=== PATIENT | female | born 1950 | race Caucasian/White ===

== ENCOUNTER → 2016-09-03 | Outpatient (CLI) | payer BC, OTHER ==
[~2016-09-03] MED LIST: BUTACAP7 PO; CITA40TA12 PO; CLX20 PO; ESTR0.3T PO; LORA-741 PO; METH4PAK PO; MOME6000 NAE; NSNN50 NAE; POTA-327 PO; POTA10CA28 PO; TRIA37.5 PO; VALA500T60 PO; ZNTT/150 PO
== END | disposition home or self-care (01) ==
LOC: C.LAB1850 10:16
PROVIDERS: ATTEND Internal Medicine
DX: Z00.00 Encounter for general adult medical examination without abnormal findings (principal); Z11.59 Encounter for screening for other viral diseases

== ENCOUNTER → 2016-09-25 | Outpatient (CLI) | payer BC, OTHER ==
--- NOTE | 2016-09-25 11:58 | DIAGNOSTIC IMAGING REPORT ---
RIGHT FOOT 3 VIEWS HISTORY: ACUTE FOOT PAIN Right COMPARISON: None. FINDINGS: Mildly displaced oblique fracture within the midshaft of the proximal phalanx of the right fourth toe. This demonstrates 2 mm of lateral displacement. Mild soft tissue swelling within the fourth toe. No radiopaque foreign bodies. IMPRESSION: Mildly displaced oblique fracture within the proximal phalanx of the right fourth toe. Electronically signed by: José Antonio Fitzgerald M.D. 09/25/2016 11:57 AM Dictated Date/Time: 09/25/2016 11:54 AM
== END | disposition home or self-care (01) ==
LOC: C.RAD1850 11:36
PROVIDERS: ATTEND Internal Medicine
DX: S92.511A Displaced fracture of proximal phalanx of right lesser toe(s), initial encounter for closed fracture (principal); X58.XXXA Exposure to other specified factors, initial encounter

== ENCOUNTER → 2016-09-30 | Outpatient (CLI) | payer BC, OTHER ==
--- NOTE | 2016-09-30 15:20 | DIAGNOSTIC IMAGING REPORT ---
RIGHT FOURTH TOE 3 VIEWS HISTORY: RIGHT 4TH TOE PAIN Right COMPARISON: Right foot 09/25/2016. FINDINGS: No change in alignment of the mild displaced oblique fracture through the shaft of the proximal phalanx of the right fourth toe. No significant healing. No dislocation. Soft tissue swelling at the fourth toe. No radiopaque foreign bodies. IMPRESSION: No change in alignment of the mildly displaced oblique fracture within the proximal phalanx of the right fourth toe. Electronically signed by: José Antonio Fitzgerald M.D. 09/30/2016 3:19 PM Dictated Date/Time: 09/30/2016 3:17 PM
== END | disposition home or self-care (01) ==
LOC: C.RDSM 08:00
PROVIDERS: ATTEND Physician Assistant
DX: S92.511A Displaced fracture of proximal phalanx of right lesser toe(s), initial encounter for closed fracture (principal); X58.XXXA Exposure to other specified factors, initial encounter

== ENCOUNTER → 2016-10-23 | Outpatient (CLI) | payer BC, OTHER ==
--- NOTE | 2016-10-23 14:49 | DIAGNOSTIC IMAGING REPORT ---
RIGHT FOURTH TOE FRACTURE CLINICAL HISTORY: Right fourth toe fracture. COMPARISON: Right foot radiographs September 25, 2016 and right fourth toe radiographs September 30, 2016. FINDINGS: There has been no change in alignment of the oblique mildly displaced fracture of the proximal phalanx of the right fourth toe. There is no significant callus formation. IMPRESSION: No change in alignment of the mildly displaced oblique fracture of the proximal phalanx of the right fourth toe. Electronically signed by: Liang Olmos M.D. 10/23/2016 2:47 PM Dictated Date/Time: 10/23/2016 2:42 PM
== END | disposition home or self-care (01) ==
LOC: C.RDSM 13:52
PROVIDERS: ATTEND Physician Assistant
DX: S92.511D Displaced fracture of proximal phalanx of right lesser toe(s), subsequent encounter for fracture with routine healing (principal); X58.XXXD Exposure to other specified factors, subsequent encounter

== ENCOUNTER 2017-01-10 11:34 | Emergency (ER) | payer BC, OTHER ==
[~2017-01-10] VITALS: Ht 180.3 cm; Wt 78.2 kg
[~2017-01-10 11:34] MED LIST changes: -CITA40TA12 PO; -METH4PAK PO; -MOME6000 NAE; -POTA10CA28 PO
[2017-01-10 11:37] VITALS: TEMP 36.9; Ht 180.3 cm; Wt 78.2 kg
[2017-01-10 12:15] LABS: PARTIAL THROMBOPLASTIN RATIO 0.9; PROTHROMBIN TIME (PATIENT) 10.3 SECONDS (9.0-12.0)
[2017-01-10] MEDS ORDERED: MOME6000 NAE (12:15)
[2017-01-10] MEDS ORDERED: CITA40TA12 PO (12:15)
[2017-01-10] MEDS ORDERED: POTA10CA28 PO (12:15)
[2017-01-10 12:22] LABS: ALT/SGPT 22 U/L (12-78); AST/SGOT 9 U/L (15-37); BLOOD UREA NITROGEN 18 mg/dl (7-18); BUN/CREATININE RATIO 19.8 (10-20); CALCIUM 9.6 mg/dl (8.5-10.1); CARBON DIOXIDE 27 mmol/L (21-32); CHLORIDE 103 mmol/L (98-107); CREATININE 0.92 mg/dl (0.60-1.20); GLUCOSE 110 mg/dl (70-99); POTASSIUM 3.8 mmol/L (3.5-5.1); SODIUM 137 mmol/L (136-145)
[2017-01-10 12:26] LABS: ALB/GLOB RATIO 0.9 (0.9-2); ALKALINE PHOSPHATASE 100 U/L (45-117)
--- NOTE | 2017-01-10 12:39 | DIAGNOSTIC IMAGING REPORT ---
CHEST ONE VIEW PORTABLE HISTORY: Atypical Chest pain COMPARISON: Chest 12/24/2013. FINDINGS: The lungs are clear. Cardiac silhouette is normal in size. No pleural effusions. No pneumothorax. IMPRESSION: No acute process. Electronically signed by: José Antonio Fitzgerald M.D. 01/10/2017 12:38 PM Dictated Date/Time: 01/10/2017 12:31 PM
[2017-01-10 12:43] VITALS: O2SAT 95
[2017-01-10] MEDS ORDERED: ASPIRIN 81 MG CHEW PO STA (12:46)
[2017-01-10 12:53] LABS: HEMATOCRIT 41.8 % (37-47); MEAN CELL VOLUME 96.5 fL (80-100); MEAN CORPUSCULAR HEMOGLOBIN 32.3 pg (25-34); MEAN CORPUSCULAR HGB CONC 33.5 g/dl (32-36); MEAN PLATELET VOLUME 10.3 fL (7.4-10.4); PLATELET COUNT 250 K/uL (130-400); RED BLOOD COUNT 4.33 M/uL (4.2-5.4); WHITE BLOOD COUNT 6.69 K/uL (4.8-10.8)
--- NOTE | 2017-01-10 13:39 | EMERGENCY ROOM VISIT NOTE ---
History Report prepared by Jacque: Laurence Givens Under the Supervision of: Dr. Janett Raymond M.D. First contact with patient: 12:18 Chief Complaint: CHEST PAIN Stated Complaint: CHEST, JAW PAIN Nursing Triage Summary: pt c/o "crushing" chest pain that radiates to left shoulder and neck around 1100. pt also c/o SOB due to pain. patient did not take anything for pain. History of Present Illness The patient is a 66 year old female who presents to the Emergency Room with complaints of right sided chest pain occurring about 2 hours ago. The patient was moving around some papers when she had an onset of her pain. The pain was severe at its initial onset. She then started having left shoulder pain radiating up to the neck. Her symptoms lasted for about 5 minutes. She currently describes the chest pain as a pulled muscle. She denies any worsening pain with deep breathing. The patient did not take an aspirin today. She denies fevers, chills, or any other complaints. She denies any recent travels. She was pushing around furniture yesterday but denies lifting any furniture. She recently had a tube placed in her right ear. The patient is on Premarin. She denies any history of blood clots. She had a stress test about 2 months ago with normal results. She has a family history of CABG, stent placement, and stroke. Source of History: patient Onset: about 2 hours ago Position: chest (right) Symptom Intensity: severe Quality: other (pulled muscle) Associated Symptoms: No fevers, No chills Review of Systems See HPI for pertinent positives & negatives. A total of 10 systems reviewed and were otherwise negative. Past Medical & Surgical Medical Problems: (1) Cervical radiculopathy at C5 (2) Cervical radiculopathy at C5 (3) Chest pain (4) Diabetes mellitus (5) Fall at home (6) Fall in home (7) Laceration (8) Leg pain, left (9) MENIERE'S DISEASE, UNSPECIFIED (10) Migraines (11) Radicular pain in left arm (12) Radicular pain in left arm (13) Shortness of breath (14) SOB (shortness of breath) Surgical Problems: (1) History of - hysterectomy (2) Status post hip surgery Family History Heart disease Hypertension Social History Smoking Status: Never Smoker Alcohol Use: occasionally Drug Use: none Marital Status: single Housing Status: lives with family Occupation Status: employed Current/Historical Medications Scheduled Citalopram Hydrobromide (Celexa), 40 MG PO HS Estrogens, Conjugated (Premarin), 0.3 MG PO Q2D Potassium Chloride (Micro-K Ext Rel), 10 MEQ PO DAILY Triamterene/Hctz (Dyazide 37.5MG/25MG), 1 TAB PO DAILY Scheduled PRN Hwmmutuvad-Xxdgelv-Bzdyxhgd (Butal/Asa/Caff), 1 CAP PO Q4H PRN for Pain Lorazepam (Ativan), 0.5 MG PO BID PRN for Anxiety Mometasone Furoate (Nasal) (Mometasone Furoate), 1-2 SPRAYS WILMAN DAILY PRN for ALLERGIES Ranitidine (Zantac), 150 MG PO Q12 PRN for Indigestion Valacyclovir (Valtrex), 500 MG PO BID PRN for OUTBREAK Allergies Coded Allergies: Ketoprofen (Verified Allergy, Severe, HIVES, 10/01/16) Aspirin (Verified Allergy, Unknown, GI SYMPTOMS, 10/01/16) Oxycodone (Verified Allergy, Unknown, GI SYMPTOMS, AGITATION, 10/01/16) Promethazine (Unverified Allergy, Unknown, RASH, 10/01/16) iv form only per patient. Cellulitis with iv Phenergan. can tolerate oral dosing Cyclobenzaprine (Unverified Adverse Reaction, Unknown, "WIPES ME OUT", ) SEVERE SIDE EFFECTS. Physical Exam Vital Signs Date Time Temp Pulse Resp B/P (MAP) Pulse Ox O2 Delivery O2 Flow Rate FiO2 01/10/17 16:37 83 18 105/63 96 Room Air 01/10/17 14:47 70 14 101/63 97 Room Air 01/10/17 12:57 84 14 124/90 97 01/10/17 12:44 75 16 130/72 96 Room Air 01/10/17 12:43 75 16 130/72 96 Room Air 01/10/17 12:43 95 Room Air 01/10/17 12:17 77 01/10/17 11:37 36.9 100 22 162/81 96 Room Air Physical Exam Vital signs reviewed. General: Well-appearing, in no significant distress. HEENT: No scleral icterus, PERRLA, neck supple. Atraumatic. Cardiovascular: Regular rate and rhythm, no extra sounds. Pulmonary: Clear to auscultation bilaterally, normal work of breathing. Abdomen: Soft, nontender, nondistended, positive bowel sounds. Musculoskeletal: Atraumatic, no peripheral edema. Neurologic: Patient awake alert and oriented x 3, full strength in all 4 extremities. Cranial nerves 2 through 12 grossly intact. Skin: Warm, dry, no rash Medical Decision & Procedures ER Provider Diagnostic Interpretation: X-ray results as stated below per interpretation by me and the radiologist: CHEST ONE VIEW PORTABLE HISTORY: Atypical Chest pain COMPARISON: Chest 12/24/2013. FINDINGS: The lungs are clear. Cardiac silhouette is normal in size. No pleural effusions. No pneumothorax. IMPRESSION: No acute process. Electronically signed by: José Antonio Fitzgerald M.D. 01/10/2017 12:38 PM Dictated Date/Time: 01/10/2017 12:31 PM Laboratory Results 01/10/17 11:45 01/10/17 11:45 Test 01/10/17 11:45 01/10/17 16:05 Red Blood Count 4.33 M/uL (4.2-5.4) Mean Corpuscular Volume 96.5 fL (80-100) Mean Corpuscular Hemoglobin 32.3 pg (25-34) Mean Corpuscular Hemoglobin Concent 33.5 g/dl (32-36) RDW Standard Deviation 44.8 fL (36.4-46.3) RDW Coefficient of Variation 12.7 % (11.5-14.5) Mean Platelet Volume 10.3 fL (7.4-10.4) Nucleated RBC Absolute Count (auto) 0.00 K/uL (0-0) Nucleated Red Blood Cells % 0.0 % Prothrombin Time 10.3 SECONDS (9.0-12.0) Prothromb Time International Ratio 1.0 (0.9-1.1) Activated Partial Thromboplast Time 24.4 SECONDS (21.0-31.0) Partial Thromboplastin Ratio 0.9 D-Dimer 390 ug/L FEU (0-500) Anion Gap 7.0 mmol/L (3-11) Est Creatinine Clear Calc Drug Dose 69.0 ml/min Estimated GFR () 76.3 Estimated GFR (Non- 65.8 BUN/Creatinine Ratio 19.8 (10-20) Calcium Level 9.6 mg/dl (8.5-10.1) Total Bilirubin 0.3 mg/dl (0.2-1) Aspartate Amino Transf (AST/SGOT) 9 U/L (15-37) Alanine Aminotransferase (ALT/SGPT) 22 U/L (12-78) Alkaline Phosphatase 100 U/L (45-117) Total Creatine Kinase 68 U/L (26-192) Creatine Kinase MB < 0.5 ng/ml (0.5-3.6) Creatine Kinase MB Ratio (0-3.0) Total Protein 7.7 gm/dl (6.4-8.2) Albumin 3.7 gm/dl (3.4-5.0) Globulin 4.0 gm/dl (2.5-4.0) Albumin/Globulin Ratio 0.9 (0.9-2) Bedside Troponin I < 0.030 ng/ml (0-0.045) Laboratory results per my review. Medications Administered Medications (Trade) Dose Ordered Sig/Ro Route Start Time Stop Time Status Last Admin Dose Admin Aspirin (Aspirin Chew) 324 mg NOW STAT PO 01/10/17 12:46 01/10/17 12:47 DC 01/10/17 12:58 324 MG ECG Indication: chest pain Rate (beats per minute): 77 Rhythm: normal sinus Findings: no acute ischemic change, no ectopy ED Course 1218: Past medical records reviewed. The patient was evaluated in room C01B. A complete history and physical examination was performed. 1246: Aspirin 324 mg PO 1639: Upon reevaluation, the patient appeared to have improvement of her symptoms. I discussed findings with her. She verbalized agreement of the treatment plan. She was discharged home. Medical Decision Medication Reconciliation: I attest that I have personally reviewed the patient' s current medication list. Blood Pressure Screening: Patient was found to have normal blood pressure on screening and does not require follow-up. Differential diagnosis: Acute coronary syndrome, pulmonary embolus, aortic dissection, musculoskeletal pain, pneumonia, pleural effusion, pneumothorax This patient was evaluated and appeared to be in no significant distress. IV access was obtained and laboratory work was drawn. 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 EKG reveals no acute ischemic changes. Laboratory work reveals negative cardiac enzymes. Patient did receive aspirin in the emergency department. Chest x-ray is clear. The patient stated that she has stress test that was negative 2 months ago. A second troponin was done at approximate 6 hours after the onset of pain and is negative. The patient was anxious to leave the department and was asked to follow-up with her primary care physician this week for reevaluation and consideration of further testing. Patient was comfortable with the plan and agrees. Impression Primary Impression: Chest pain radiating to jaw Scribe Attestation The scribe's documentation has been prepared under my direction and personally reviewed by me in its entirety. I confirm that the note above accurately reflects all work, treatment, procedures, and medical decision making performed by me. Departure Information Dispostion Home / Self-Care Referrals Kp Kim M.D. (PCP) Forms HOME CARE DOCUMENTATION FORM, IMPORTANT VISIT INFORMATION Patient Instructions My [facility] Additional Instructions Diagnosis: Chest pain radiating to the jaw. Continue your medications as prescribed. Contact Dr. Kim's office today or early tomorrow for an appointment for reevaluation. Return to the emergency department for worsening of symptoms or any medical concerns.
[2017-01-10 16:37] VITALS: BP 105/63; PULSE 83; O2SAT 96
== END 2017-01-10 16:47 | disposition home or self-care (01) ==
LOC: C.EDB 11:36 → C.EDC 16:47
DX: R07.9 Chest pain, unspecified (principal); R68.84 Jaw pain; M25.512 Pain in left shoulder; M54.2 Cervicalgia; E11.9 Type 2 diabetes mellitus without complications; Z79.899 Other long term (current) drug therapy; Z82.3 Family history of stroke; Z82.49 Family history of ischemic heart disease and other diseases of the circulatory system

== ENCOUNTER → 2017-01-22 | Outpatient (CLI) | payer BC, OTHER ==
[~2017-01-22] MED LIST changes: +CITA40TA12 PO; -CLX20 PO; +METH4PAK PO; +MOME6000 NAE; -NSNN50 NAE; -POTA-327 PO; +POTA10CA28 PO
[2017-01-22 10:19] LABS: ESTIMATED AVERAGE GLUCOSE 120 mg/dl; HA1C FLAG Normal (Normal)
[2017-01-22 12:38] LABS: CHOLESTEROL/HDL RATIO 3.3
== END | disposition home or self-care (01) ==
LOC: C.LAB1850 08:56
PROVIDERS: ATTEND Internal Medicine
DX: E78.5 Hyperlipidemia, unspecified (principal); R73.03 Prediabetes

== ENCOUNTER 2017-02-08 10:24 | Emergency (ER) | payer BC, OTHER ==
[~2017-02-08] VITALS: Ht 180.3 cm; Wt 79.6 kg
[~2017-02-08 10:24] MED LIST changes: -METH4PAK PO
[2017-02-08 10:29] VITALS: TEMP 36.6; Ht 180.3 cm; Wt 79.6 kg
--- NOTE | 2017-02-08 11:23 | EMERGENCY ROOM VISIT NOTE ---
History Report prepared by Jacque: Liseth Spann Under the Supervision of: Dr. Cora Yuan D.O. First contact with patient: 11:00 Chief Complaint: ALLERGIC REACTION Stated Complaint: ALLERGIC REACTION Nursing Triage Summary: Pt reports itching on her face yesterday, right side and then she got a red rash spreading to left side of face and left neck. Took benadryl twice yesterday but did not take it this am. Pt requests no IV until after seen by Provider. History of Present Illness The patient is a 66 year old female who presents to the Emergency Room with complaints of a worsening allergic reaction that started yesterday. She states she noticed a red rash spreading over her face yesterday along the left side of her face and left neck. She rates her discomfort as a 6.5/10. She took Benadryl yesterday and states it provided minimal relief. The patient reports she mowed her lawn recently but denies any recent excessive time spent outdoors or in the [place]. She notes she does have indoor/outdoor cats at home, and could have gotten exposed to something through them. Source of History: patient Onset: yesterday Position: head (right side of face) Symptom Intensity: 6.5/10 Timing: worsening Modifying Factors (Relieving): other (Benadryl) Review of Systems See HPI for pertinent positives & negatives. A total of 10 systems reviewed and were otherwise negative. Past Medical & Surgical Medical Problems: (1) Cervical radiculopathy at C5 (2) Cervical radiculopathy at C5 (3) Chest pain (4) Diabetes mellitus (5) Fall at home (6) Fall in home (7) Laceration (8) Leg pain, left (9) MENIERE'S DISEASE, UNSPECIFIED (10) Migraines (11) Radicular pain in left arm (12) Radicular pain in left arm (13) Shortness of breath (14) SOB (shortness of breath) Surgical Problems: (1) History of - hysterectomy (2) Status post hip surgery Family History Heart disease Hypertension Social History Smoking Status: Former Smoker Alcohol Use: occasionally Drug Use: none Marital Status: single Housing Status: lives with family Occupation Status: employed Current/Historical Medications Scheduled Citalopram Hydrobromide (Celexa), 40 MG PO HS Estrogens, Conjugated (Premarin), 0.3 MG PO Q2D Methylprednisolone (Medrol Dosepak), 1 PKT PO UD Potassium Chloride (Micro-K Ext Rel), 10 MEQ PO DAILY Triamterene/Hctz (Dyazide 37.5MG/25MG), 1 TAB PO DAILY Scheduled PRN Iahsaoflln-Amskrux-Hakhluyj (Butal/Asa/Caff), 1 CAP PO Q4H PRN for Pain Lorazepam (Ativan), 0.5 MG PO BID PRN for Anxiety Mometasone Furoate (Nasal) (Mometasone Furoate), 1-2 SPRAYS WILMAN DAILY PRN for ALLERGIES Ranitidine (Zantac), 150 MG PO Q12 PRN for Indigestion Valacyclovir (Valtrex), 500 MG PO BID PRN for OUTBREAK Allergies Coded Allergies: Ketoprofen (Verified Allergy, Severe, HIVES, 02/08/17) Aspirin (Verified Allergy, Unknown, GI SYMPTOMS, 02/08/17) Oxycodone (Verified Allergy, Unknown, GI SYMPTOMS, AGITATION, 02/08/17) Promethazine (Unverified Allergy, Unknown, RASH, 02/08/17) iv form only per patient. Cellulitis with iv Phenergan. can tolerate oral dosing Cyclobenzaprine (Unverified Adverse Reaction, Unknown, "WIPES ME OUT", ) SEVERE SIDE EFFECTS. Physical Exam Vital Signs Date Time Temp Pulse Resp B/P (MAP) Pulse Ox O2 Delivery O2 Flow Rate FiO2 02/08/17 11:35 72 18 91/60 99 02/08/17 10:32 96 Room Air 02/08/17 10:29 36.6 77 19 124/78 96 Room Air Physical Exam HEENT: Head - normocephalic and atraumatic Linear line along left side of the face consistent with poison marry. Pupils are equal, round, and reactive to light. Extraocular eye muscles are intact. Surrounding the right eye and right side of face there are vesicular lesions consistent with poison marry/oak. Right eye has lid edema, no scleral involvement. Nose - moist nasal mucosa without discharge. Mouth - moist buccal mucosa. Oropharynx is nonerythematous and there is no tonsillar exudate or edema noted. Neck: Supple; no JVD, nuchal rigidity, cervical lymphadenopathy. The patient has one area of vesicular lesions on the anterior aspect of the left side of her neck. Heart: Regular rate and rhythm. There is a normal S1 and S2 with no murmurs, clicks, or gallops appreciated. Lungs: Clear to auscultation bilaterally with no wheezes, rales, or rhonchi. Abdomen: Soft, completely nontender, nondistended, with good bowel sounds. There are no palpable pulsatile masses or hepatosplenomegaly. There is no guarding, rigidity, or rebound noted. Extremities: No evidence of cyanosis, clubbing, or edema. There are easily palpable peripheral pulses. Skin: warm and dry with good turgor and no rashes. Medical Decision & Procedures Medications Administered Medications (Trade) Dose Ordered Sig/Ro Route Start Time Stop Time Status Last Admin Dose Admin Prednisone (PredniSONE TAB) 60 mg NOW STAT PO 02/08/17 11:24 02/08/17 11:25 DC 02/08/17 11:30 60 MG Procedure Prednisone PO. ED Course 1112: Past medical records reviewed. The patient was evaluated in room B7. A complete history and physical exam was performed. 1124: Prednisone 60 mg PO. 1145: I reevaluated the patient. She is feeling much better. I discussed her discharge instructions and she verbalized complete understanding and agreement. Medical Decision I attest that I have personally reviewed the patient's current medication list. Blood Pressure Screening: Patient was found to have a slightly low blood pressure due to circumstances. I do not believe that the patient requires hypotension monitoring. The patient is a 66 year old female who presents to the ED with an allergic reaction. The differential diagnoses considered include: poison marry, poison oak , poison sumac, shingles and cellulitis. Patient has a rash about the right side of her face that looks consistent with poison sumac or poison oak. She also has an area of linear vesicular lesions over the left side of her face which also looks consistent with poison but is most likely poison marry. The patient does believe that she may have come into contact with this substance as a result of her cats climbing around her face. The patient was encouraged to use Zanfel for itch. She will start a Medrol Dosepak Impression Primary Impression: Dermatitis due to plants, including poison marry, sumac, and oak Scribe Attestation The scribe's documentation has been prepared under my direction and personally reviewed by me in its entirety. I confirm that the note above accurately reflects all work, treatment, procedures, and medical decision making performed by me. Departure Information Dispostion Home / Self-Care Prescriptions Methylprednisolone (MEDROL DOSEPAK) 4 Mg Kenny 1 PKT PO UD for 6 Days, #1 PKT Prov: Cora Yuan D.O. 02/08/17 Referrals Pro,Kp Zamudio M.D. (PCP) Patient Instructions My [facility], Po[facility] React Additional Instructions Rest with your head elevated. Use Zanfel as directed. Take steroid taper You may also use benadryl
[2017-02-08 11:35] VITALS: BP 91/60; PULSE 72; O2SAT 99
[2017-02-08] MEDS ORDERED: METH4PAK PO (11:40)
== END 2017-02-08 11:47 | disposition home or self-care (01) ==
LOC: C.EDB 10:26
DX: L23.7 Allergic contact dermatitis due to plants, except food (principal); E11.9 Type 2 diabetes mellitus without complications; Z90.710 Acquired absence of both cervix and uterus; Z82.49 Family history of ischemic heart disease and other diseases of the circulatory system; Z87.891 Personal history of nicotine dependence; Z79.899 Other long term (current) drug therapy

== ENCOUNTER → 2017-06-12 | Outpatient (CLI) | payer BC, OTHER ==
--- NOTE | 2017-06-12 15:53 | DIAGNOSTIC IMAGING REPORT ---
R ELBOW 2 VIEWS HISTORY: 67 years-old Female INFLAMMATION OF R ELBOW acute right elbow pain without reported trauma COMPARISON: None available TECHNIQUE: 3 views of the right elbow FINDINGS: There is no acute fracture or dislocation. There is mild degenerative spurring about the elbow, notably at the lateral epicondyle at the expected location of the common extensor insertion. Mild dorsal soft tissue swelling. No joint effusion or opaque foreign body. IMPRESSION: 1. Mild dorsal soft tissue swelling without acute fracture or dislocation. 2. Mild degenerative spurring about the elbow. The above report was generated using voice recognition software. It may contain grammatical, syntax or spelling errors. Electronically signed by: Ke Anderson M.D. 06/12/2017 3:51 PM Dictated Date/Time: 06/12/2017 3:50 PM
== END | disposition home or self-care (01) ==
LOC: C.RAD1850 15:24
PROVIDERS: ATTEND Internal Medicine
DX: M19.021 Primary osteoarthritis, right elbow (principal)

== ENCOUNTER → 2017-06-13 | Outpatient (CLI) | payer BC, OTHER ==
[2017-06-13 18:17] LABS: MEAN CELL VOLUME 98.7 fL (80-100); MEAN CORPUSCULAR HEMOGLOBIN 32.5 pg (25-34); MEAN PLATELET VOLUME 10.9 fL (7.4-10.4); PLATELET COUNT 202 K/uL (130-400); RED BLOOD COUNT 3.75 M/uL (4.2-5.4); WHITE BLOOD COUNT 6.57 K/uL (4.8-10.8)
[2017-06-13 18:37] LABS: BLOOD UREA NITROGEN 24 mg/dl (7-18); BUN/CREATININE RATIO 27.8 (10-20); CALCIUM 9.1 mg/dl (8.5-10.1); CARBON DIOXIDE 29 mmol/L (21-32); CHLORIDE 102 mmol/L (98-107); CREATININE 0.86 mg/dl (0.60-1.20); GLUCOSE 90 mg/dl (70-99); POTASSIUM 3.7 mmol/L (3.5-5.1); SODIUM 137 mmol/L (136-145)
[2017-06-14 07:13] LABS: ESTIMATED AVERAGE GLUCOSE 117 mg/dl; HA1C FLAG Normal (Normal)
== END | disposition home or self-care (01) ==
LOC: C.LAB 17:09
PROVIDERS: ATTEND Internal Medicine
DX: G47.00 Insomnia, unspecified (principal); R73.03 Prediabetes; E53.8 Deficiency of other specified B group vitamins; E55.9 Vitamin D deficiency, unspecified; R53.83 Other fatigue; Z78.0 Asymptomatic menopausal state

== ENCOUNTER → 2017-06-24 | Outpatient (CLI) | payer BC ==
[2017-06-24 17:20] LABS: BASO % 0.2 %; BASO ABS # 0.02 K/uL (0-0.2); COMPLETE YES; EOS % 1.9 %; HEMATOCRIT 37.1 % (37-47); IG% 0.4 %; LYMPH % 27.4 %; MEAN CELL VOLUME 99.7 fL (80-100); MEAN CORPUSCULAR HEMOGLOBIN 33.9 pg (25-34); MEAN PLATELET VOLUME 10.8 fL (7.4-10.4); MONO % 9.7 %; NEUT % 60.4 %; PLATELET COUNT 209 K/uL (130-400); RED BLOOD COUNT 3.72 M/uL (4.2-5.4); WHITE BLOOD COUNT 8.04 K/uL (4.8-10.8)
[2017-06-24 17:50] LABS: ALT/SGPT 33 U/L (12-78); BLOOD UREA NITROGEN 25 mg/dl (7-18); BUN/CREATININE RATIO 25.3 (10-20); CALCIUM 8.9 mg/dl (8.5-10.1); CARBON DIOXIDE 32 mmol/L (21-32); CHLORIDE 98 mmol/L (98-107); CREATININE 0.99 mg/dl (0.60-1.20); GLUCOSE 106 mg/dl (70-99); POTASSIUM 3.7 mmol/L (3.5-5.1); SODIUM 136 mmol/L (136-145)
[2017-06-24 17:53] LABS: ALKALINE PHOSPHATASE 115 U/L (45-117); AST/SGOT 19 U/L (15-37)
== END | disposition home or self-care (01) ==
LOC: C.LAB1850 16:13
PROVIDERS: ATTEND Internal Medicine
DX: R51 Headache (principal); R53.83 Other fatigue; R00.2 Palpitations; R11.0 Nausea

== ENCOUNTER → 2017-07-16 | Outpatient (CLI) | payer BC, OTHER ==
[~2017-07-16] MED LIST changes: +RANI150T85 PO; -ZNTT/150 PO
--- NOTE | 2017-07-16 14:59 | MAMMOGRAPHY REPORT ---
BILATERAL DIGITAL SCREENING MAMMOGRAM TOMOSYNTHESIS WITH CAD: 07/16/2017 CLINICAL HISTORY: Routine screening. TECHNIQUE: Breast tomosynthesis in addition to standard 2D mammography was performed. Current study was also evaluated with a Computer Aided Detection (CAD) system. COMPARISON: Comparison is made to exams dated: 11/22/2013 mammogram, 11/17/2013 mammogram, 04/16/2010 ma mmogram - [facility], and 02/18/2008. BREAST COMPOSITION: There are scattered areas of fibroglandular density in both breasts. FINDINGS: No suspicious masses, calcifications, or areas of architectural distortion are noted in ei ther breast. There has been no significant interval change compared to prior exams. Scattered bilater al benign-appearing calcifications are not significantly changed. Bilateral asymmetries are not sign ificantly changed. IMPRESSION: ACR BI-RADS CATEGORY 2: BENIGN There is no mammographic evidence of malignancy. A 1 year screening mammogram is recommended. The pa tient will receive written notification of the results. Approximately 10% of breast cancers are not detected with mammography. A negative mammographic report should not delay biopsy if a clinically suggestive mass is present. Gifty Jansen M.D. ah/:07/16/2017 10:21:07 Fx Artist: Robbin BERGMAN(Aris)(Jhony), [facility] letter sent: Normal 1/2 BI-RADS Code: ACR BI-RADS Category 2: Benign
== END | disposition home or self-care (01) ==
LOC: C.MAMM 09:50
PROVIDERS: ATTEND Internal Medicine
DX: Z12.31 Encounter for screening mammogram for malignant neoplasm of breast (principal)

== ENCOUNTER 2024-10-13 22:18 | Observation (INO) ==
[2024-10-13 22:23] VITALS: TEMP 97.9
[2024-10-13 23:48] LABS: Basophils # (auto) 0.02 K/uL (0.00-0.20); Basophils % (auto) 0.3 %; Eosinophils # (auto) 0.17 K/uL (0.00-0.50); Eosinophils % (auto) 2.3 %; Hematocrit (blood only) 37.9 % (37.0-47.0); Immature Granulocytes # (auto) 0.02 K/uL (0.01-0.20); Immature Granulocytes % (auto) 0.3 %; Lymphocytes # (auto) 2.35 K/uL (1.20-3.40); Lymphocytes % (auto) 31.9 %; Mean Corpuscular Hemoglobin 34.5 pg (25.0-34.0); Mean Corpuscular Hgb Conc 34.3 g/dL (32.0-36.0); Mean Corpuscular Volume 100.5 fL (80.0-100.0); Mean Platelet Volume 10.5 fL (9.4-12.4); Monocytes # (auto) 0.66 K/uL (0.11-0.59); Neutrophils # (auto) 4.14 K/uL (1.40-6.50); Neutrophils % (auto) 56.2 %; Platelet Count 176 K/uL (130-400); RDW Coefficient of Variation 13.1 % (11.5-14.5); RDW Standard Deviation 47.6 fL (36.4-46.3); Red Blood Count 3.77 M/uL (4.20-5.40); White Blood Count 7.36 K/ul (4.8-10.8)
[2024-10-13 23:55] LABS: Albumin Globulin Ratio 1.2 (0.9-2); Albumin Level 4.2 gm/dl (3.4-5.0); BUN Creatinine Ratio 25.3 (10-20); Bilirubin,Total 0.4 mg/dl (0.2-1.0); Calcium 9.5 mg/dl (8.6-10.3); Creatinine Clr Calc Pharmacy 63.2 ml/min; Globulin 3.4 gm/dl (2.5-4.0); Potassium 3.7 mmol/L (3.5-5.1); Total Protein 7.6 gm/dl (6.0-8.3)
[2024-10-14 00:01] LABS: Troponin I High Sensitivity 4.7 pg/ml (0-14)
--- NOTE | 2024-10-14 00:18 | XRay Report ---
Exam(s): XR CXR 1 VIEW EXAM: XR Chest, 1 View CLINICAL HISTORY: Reason for exam: Chest pain, nonspecific. TECHNIQUE: Frontal view of the chest. COMPARISON: May 24, 2024. FINDINGS: Lungs: Unremarkable. No acute infiltration, atelectasis or mass. Pleural space: Unremarkable. No pneumothorax or pleural fluid. Heart: Unremarkable. No cardiomegaly. Mediastinum: Unremarkable. Normal mediastinal contour. Bones/joints: Mild curvature of the spine. No acute bone abnormality. IMPRESSION: No acute findings in the chest. Electronically signed by: Sesar Montana MD 10/14/24 00:17 AM
--- NOTE | 2024-10-14 00:59 | Emergency Department Note ---
Impression & Plan Chest pain ED Provider Note NAME: KWAME VALDES AGE: 74 SEX: F : 1950 ARRIVES VIA: Walk-In INFORMANT: Patient, ED PROVIDER(S): Emiliano Anderson MD CHIEF COMPLAINT: Chest pain HPI: This is a 74-year-old female presenting for chest pain. Patient states that she began having right sided neck pain that was rating to her jaw. This time into her shoulder. She attempted to walk around admitted to go away. She notes that the pain did resolve slightly and then returned. The pain that went from her right shoulder crossed her chest. She notes some repeat episodes of chest and jaw pain. She reports no shortness of breath with this. No nausea or vomiting. No pleurisy. ROS: See above HPI for pertinent positives & negatives. A total of 10 systems reviewed and were otherwise negative. PAST MEDICAL HISTORY: See Below PAST SURGICAL HISTORY: See Below FAMILY HISTORY: See Below SOCIAL HISTORY: See Below HOME MEDICATIONS: See Below ALLERGIES: See Below VITALS: See Below PHYSICAL EXAMINATION: General: resting comfortably in no acute distress Head: Normocephalic and atraumatic Eyes: Normal inspection, extraocular muscles intact Ear, nose, throat: Normal external exam Neck: Normal range of motion Respiratory: lungs clear to auscultation bilaterally Cardiovascular: Regular rate/rhythm, no murmur GI: soft, nontender, no guarding or rebound Extremities: nontender, moves all extremities Neuro: The patient awake and alert, appropriately conversive, no focal deficits, symmetric faces Skin: Warm, dry, and intact MEDICAL DECISION MAKING: This is 74-year-old female presenting for chest pain. Will do screening workup to assess for ACS. Low concern for PE clinically. Consider pneumonia, rib injury, dissection -ECG independently interpreted by me with normal sinus rhythm, rate of 71, normal axis, normal NC, normal QRS, normal QTc, no ST segment elevations consistent with STEMI criteria -Chest Xray independently interpreted by me showing no pneumothorax, focal opacity, or pleural effusions. -Patient has numerous episodes of recurrent pain here both in the chest and neck. Will do CT of the chest/neck to assess for dissection -The CTs are currently negative -Troponins returned negative as well. -With patient's persistent pain, will admit for ACS workup and further testing. Differential diagnosis: ACS, PE, dissection, musculoskeletal back pain, GERD, pancreatitis Diagnostics interpreted by me: ECG: See above Cardiac Monitoring: An order was placed for continuous cardiac monitoring. The monitor shows a rate of 80 with sinus rhythm. Past Med/Surg History Problem List Chest pain (Acute) Change in bowel movement Avascular necrosis of bones of both hips Ischial bursitis of left side Osteonecrosis of hip Elevated alkaline phosphatase level Duane's deformity of right heel Retrocalcaneal bursitis (back of heel) S/P myringotomy with insertion of tube ETD (eustachian tube dysfunction) Chronic diarrhea Vitamin D deficiency (Acute) Vitamin B12 deficiency (Acute) Migraine headache (Acute) Insomnia (Acute) IBS (irritable bowel syndrome) (Acute) Anxiety disorder (Acute) Right hip pain Short NC-normal QRS complex syndrome Fatigue Pituitary microadenoma Herpes (Chronic) Lateral epicondylitis of left elbow Left hip pain Hamstring tear Encounter for pre-operative examination Gout Trochanteric bursitis of right hip Dorsalgia of lumbar region Scar neuroma Acute medial meniscus tear of right knee Allergic contact dermatitis Drug reaction Oral allergy syndrome Pancytopenia Wrist pain Carpal tunnel syndrome of right wrist De Quervain's tenosynovitis, right Family history of factor V deficiency Pt heterozygous for Factor V Leiden per 10/01/22 labs Pt aware- no personal hx of PE or DVT- no AC needed per patient; no issues with previous surgeries Hyperlipidemia (Acute) Per PCP records Prediabetes (Acute) Per PCP records Hgb A1C 6.0 09/2022 Geographic tongue History of hip surgery 08/20/21 ([facility]) Left open proximal hamstring repair Medical History Abdominal pain Tongue irritation Mucositis Dysuria Chest pain Gout HTN (hypertension) Environmental allergies Meniere disease Benign tumor of pituitary gland MRI every 3 years IBS (irritable bowel syndrome) GERD (gastroesophageal reflux disease) [place] (hard of hearing) Anxiety Migraines Surgical History History of carpal tunnel surgery of right wrist 12/2022 @ [facility] History of placement of ear tubes RIGHT History of colonoscopy History of hip surgery Rt - repair of labral tear. [facility] History of tympanoplasty Hx of tonsillectomy H/O oophorectomy H/O: hysterectomy H/O cystoscopy treatment for Female Urethral Syndrome Family History Father Arteriosclerotic cardiovascular disease (ASCVD) Mother Brain tumor PONV (postoperative nausea and vomiting) Grandfather (Paternal) Hypertension Brother Hypertension Sister PONV (postoperative nausea and vomiting) Denies family history of Ovarian cancer Prostate cancer Breast cancer Colorectal cancer Social History Smoking Status: Never smoker Tobacco Type: Cigarettes packs per day: 0; Second Hand Exposure: No; Do You Dip or Chew Tobacco: No; Hx Alcohol Use: Yes Alcohol type: beer and wine Hx Substance Use: No Preferred Language: [place] Communication Ability: Effective Visual Impairment: No Limitations Hearing Ability: Normal Booking Prizer Required: No Beliefs That Will Affect Care: None marital status: Single Current Living Situation: Family current occupational status: employed Feels Safe at Home: Yes Seatbelt Use: always Assistive Devices: Denture - Lower and Glasses Allergies Allergies Allergy/AdvReac Type Severity Reaction Status Date / Time ketoprofen Allergy Severe HIVES Verified 10/14/24 00:38 ketorolac Allergy Severe Hives Verified 10/14/24 00:38 promethazine [From Phenergan] Allergy Intermediate cellulitis Verified 10/14/24 00:38 when received IV form azithromycin AdvReac Severe Abdominal Verified 10/14/24 04:56 Pain,diarrhea, chills cyclobenzaprine AdvReac Mild "WIPES ME Verified 10/14/24 00:38 OUT" Home Meds Home Medications Medication Instructions Recorded Confirmed cholecalciferol (vitamin D3) 50 50 mcg PO QAM 08/01/21 10/14/24 mcg (2,000 unit) capsule (Vitamin D3) azelastine 137 mcg (0.1 %) nasal 2 spray intranasal BID PRN Nasal 05/07/23 10/14/24 spray Congestion dicyclomine 10 mg capsule 10 mg PO QID PRN abdominal cramping 06/22/23 10/14/24 lorazepam 1 mg tablet 1 mg PO HS PRN anxiety 10/14/24 10/14/24 pantoprazole 40 mg tablet,delayed 40 mg PO DAILYBB 10/14/24 10/14/24 release Previous Rx's Medication Instructions Recorded famotidine 20 mg tablet 20 mg PO QAM Heartburn #30 tabs 01/08/24 triamterene 37.5 1 cap PO QAM #30 caps 07/27/24 mg-hydrochlorothiazide 25 mg capsule gabapentin 100 mg capsule 300 mg (3 x 100 mg) PO BID #180 08/04/24 caps rosuvastatin 10 mg tablet (Crestor) 10 mg PO DAILY #90 tabs 08/04/24 lorazepam 0.5 mg tablet 0.5 mg PO BID PRN anxiety #30 tabs 08/27/24 valacyclovir 1 gram tablet 1,000 mg PO QAM #30 tabs 09/07/24 tramadol 50 mg tablet 50 mg PO DAILY PRN pain #20 tabs 09/16/24 potassium chloride 10 mEq 10 meq PO QAM #60 tabs 09/17/24 tablet,extended release otvcewjybg-zyqyhfagklcfc-qxvwxlya 1 cap PO Q8H PRN pain #20 caps 10/12/24 50 mg-300 mg-40 mg capsule (Fioricet) allopurinol 100 mg tablet 200 mg (2 x 100 mg) PO DAILY #60 10/13/24 tabs escitalopram oxalate 20 mg tablet 20 mg PO HS #90 tabs 10/13/24 (Lexapro) Results & Data (ED) Vital Signs Vital Signs - 24 hr 10/13/24 22:20 10/13/24 22:33 10/13/24 23:20 Temperature 36.6 C Temperature Source Temporal Artery Scan Pulse Rate 92 H 74 Pulse Rate [Right Finger] Pulse Rate from SpO2 Sensor Respiratory Rate 18 Respiratory Effort / Characteristics Non-Labored Spontaneous Respiratory Depth Normal Blood Pressure 133/77 Blood Pressure [Right Arm] Blood Pressure Mean 95 Blood Pressure Mean [Right Arm] Pulse Oximetry 96 95 Oxygen Delivery Method Room Air Room Air Sepsis Recent Fever Within 48 Hours No Sepsis New/Unexplained Change in Mental Status N/A Sepsis Action Taken by Nursing No Action Required 10/13/24 23:20 10/13/24 23:20 10/14/24 01:30 Temperature 36.6 C Temperature Source Oral Pulse Rate 73 70 Pulse Rate [Right Finger] 73 Pulse Rate from SpO2 Sensor 70 Respiratory Rate 18 18 16 Respiratory Effort / Characteristics Non-Labored Spontaneous Respiratory Depth Normal Blood Pressure 108/44 L Blood Pressure [Right Arm] 121/70 Blood Pressure Mean 61 Blood Pressure Mean [Right Arm] 87 Pulse Oximetry 96 96 97 Oxygen Delivery Method Room Air Room Air Room Air Sepsis Recent Fever Within 48 Hours Sepsis New/Unexplained Change in Mental Status Sepsis Action Taken by Nursing 10/14/24 02:02 10/14/24 02:30 10/14/24 02:55 Temperature Temperature Source Pulse Rate 72 69 80 Pulse Rate [Right Finger] Pulse Rate from SpO2 Sensor 68 70 Respiratory Rate 19 18 Respiratory Effort / Characteristics Respiratory Depth Blood Pressure 147/82 H 128/91 Blood Pressure [Right Arm] Blood Pressure Mean 111 96 Blood Pressure Mean [Right Arm] Pulse Oximetry 97 95 Oxygen Delivery Method Room Air Room Air Sepsis Recent Fever Within 48 Hours Sepsis New/Unexplained Change in Mental Status Sepsis Action Taken by Nursing Laboratory Data 10/13/24 22:48 10/13/24 22:48 Lab Results 10/13/24 10/14/24 Range/Units 22:48 04:01 WBC 7.36 (4.8-10.8) K/ul RBC 3.77 L (4.20-5.40) M/uL Hgb 13.0 (12.0-16.0) g/dl Hct 37.9 (37.0-47.0) % MCV 100.5 H (80.0-100.0) fL MCH 34.5 H (25.0-34.0) pg MCHC 34.3 (32.0-36.0) g/dL RDW Std Deviation 47.6 H (36.4-46.3) fL RDW Coeff of Lisandra 13.1 (11.5-14.5) % Plt Count 176 (130-400) K/uL MPV 10.5 (9.4-12.4) fL Immature Gran % (Auto) 0.3 % Neut % (Auto) 56.2 % Lymph % (Auto) 31.9 % Hand % (Auto) 9.0 % Eos % (Auto) 2.3 % Baso % (Auto) 0.3 % Neut # (Auto) 4.14 (1.40-6.50) K/uL Lymph # (Auto) 2.35 (1.20-3.40) K/uL Hand # (Auto) 0.66 H (0.11-0.59) K/uL Eos # (Auto) 0.17 (0.00-0.50) K/uL Baso # (Auto) 0.02 (0.00-0.20) K/uL Immature Gran # (Auto) 0.02 (0.01-0.20) K/uL Sodium 139 (136-145) mmol/L Potassium 3.7 (3.5-5.1) mmol/L Chloride 102 (98-107) mmol/L Carbon Dioxide 31 (21-32) mmol/L Anion Gap 6 (3-11) BUN 22 (6-23) mg/dl Creatinine 0.87 (0.6-1.2) mg/dl Est Cr Clr Drug Dosing 63.2 ml/min eGFR 70.74 BUN/Creatinine Ratio 25.3 H (10-20) Glucose 110 H (70-99(Fasting)) mg/dl Calcium 9.5 (8.6-10.3) mg/dl Total Bilirubin 0.4 (0.2-1.0) mg/dl AST 15 (13-39) U/L ALT 17 (7-52) U/L Alkaline Phosphatase 109 H (34-104) U/L Troponin I High Sens 4.7 2.4 (0-14) pg/ml Total Protein 7.6 (6.0-8.3) gm/dl Albumin 4.2 (3.4-5.0) gm/dl Globulin 3.4 (2.5-4.0) gm/dl Albumin/Globulin Ratio 1.2 (0.9-2) Lipase 81 (11-82) U/L Administered Medications Discontinued Medications Al Hydrox/Mg Hydrox/Simethicone (Aluminum/Magnesium Susp 30 Ml Udc) 30 ml PO NOW STA Stop: 10/14/24 04:55 Last Admin: 10/14/24 05:28 Dose: 30 ml Documented By: CAMI Diazepam (Diazepam 5 Mg/Ml 10ml Vial) 5 mg IV NOW STA Stop: 10/14/24 05:02 Last Admin: 10/14/24 05:28 Dose: 5 mg Documented By: CAMI Gabapentin (Gabapentin 300 Mg Cap) 300 mg PO ONE STA Stop: 10/14/24 04:57 Last Admin: 10/14/24 05:29 Dose: 300 mg Documented By: CAMI Pantoprazole Sodium (Protonix) 40 mg in 10 mls @ 5 mls/min IV NOW STA Stop: 10/14/24 04:54 Last Admin: 10/14/24 05:29 Dose: 5 mls/min Documented By: CAMI Ioversol (Optiray 320 125ml) 125 ml IV ONCE ONE Stop: 10/14/24 01:19 Last Admin: 10/14/24 01:18 Dose: 118 ml Documented By: MELISSA Lorazepam (Lorazepam 2 Mg/1 Ml Vial) 0.5 mg IV NOW STA Stop: 10/14/24 04:56 Last Admin: 10/14/24 05:21 Dose: Not Given Documented By: JOSE L Imaging Data Radiologist's Impression: Chest X-Ray 10/13/24 23:14 Exam(s): XR CXR 1 VIEW EXAM: XR Chest, 1 View CLINICAL HISTORY: Reason for exam: Chest pain, nonspecific. TECHNIQUE: Frontal view of the chest. COMPARISON: May 24, 2024. FINDINGS: Lungs: Unremarkable. No acute infiltration, atelectasis or mass. Pleural space: Unremarkable. No pneumothorax or pleural fluid. Heart: Unremarkable. No cardiomegaly. Mediastinum: Unremarkable. Normal mediastinal contour. Bones/joints: Mild curvature of the spine. No acute bone abnormality. IMPRESSION: No acute findings in the chest. Electronically signed by: Sesar Montana MD 10/14/24 00:17 AM Chest CTA 10/14/24 00:35 EXAM: CT angio chest w con CLINICAL HISTORY: Dissection TECHNIQUE: Contiguous axial images were obtained from the neck base through the upper abdomen following intravenous administration of iodinated contrast material. Angiographic images were processed, 3D MIP images were acquired for interpretation. If IV contrast material had not been administered, the likelihood of detecting abnormalities relevant to the patient's condition would have been substantially decreased. Coronal and sagittal 3-D MIPs were likewise performed and indicated to increase the sensitivity of detectin diffuse clinically relevant pathology. CT scan was performed according to ALARA (as low as reasonable achievable). COMPARISON: . None. FINDINGS: No evidence of pulmonary embolism. The central airways are patent. The lungs are clear. No pleural effusion. The heart, aorta, and pulmonary arteries are of normal size and configuration. There are no appreciable coronary artery and aortic atherosclerotic calcifications. No pericardial effusion is identified. The thyroid is unremarkable. No mediastinal, hilar, or axillary lymphadenopathy is noted. No suspicious lytic or sclerotic osseous lesions are identified. IMPRESSION: No evidence of pulmonary embolism or pulmonary disease or aortic dissection. Electronically signed by Anibal So 10-14-2024 02:50 AM Neck CTA 10/14/24 00:35 EXAM: CT angio neck with con CLINICAL HISTORY: dissection, chest/neck pain TECHNIQUE: Contrast enhanced thin slice CT angiography scan of the carotid vessels was performed with intravenous contrast. Angiographic images were processed, 3D MIP images were acquired for interpretation.Contiguous axial images were obtained. Reformatted coronal and sagittal images were also reviewed. If IV contrast material had not been administered, the likelihood of detecting abnormalities relevant to the patients condition would have been substantially decreased. CT scan was performed according to ALARA (as low as reasonable achievable). COMPARISON: . None FINDINGS: Included great vessels of the aortic arch are grossly unremarkable. Common carotid artery, carotid Bulb, internal carotid artery , and origin of the external carotid artery are well opacified. Vertebral arteries are well opacified. Jugular veins are well opacified. Included lung apices are grossly unremarkable. Thyroid gland appears unremarkable. IMPRESSION: 1. No evidence of stenosis or aneurysm. No evidence of dissection. Electronically signed by Anibal So 10-14-2024 02:47 AM Discharge Plan Visit Data Chief Complaint: Chest Pain Stated Complaint: CHEST PAIN, R ARM PAIN, ANX, HEADACHE ED Provider: Emiliano Anderson Discharge Problem: Chest pain Discharge Instructions Interventions: ED Discharge Assessment Last Done: 10/14/24 05:28 Discharge Problem: Chest pain Qualifiers: Chest pain type: unspecified Qualified Code(s): R07.9 - Chest pain, unspecified
[2024-10-14] MEDS: OPTIRAY 320 125ml IV ONE (01:18)
--- NOTE | 2024-10-14 02:48 | CT Scan Report ---
EXAM: CT angio neck with con CLINICAL HISTORY: dissection, chest/neck pain TECHNIQUE: Contrast enhanced thin slice CT angiography scan of the carotid vessels was performed with intravenous contrast. Angiographic images were processed, 3D MIP images were acquired for interpretation.Contiguous axial images were obtained. Reformatted coronal and sagittal images were also reviewed. If IV contrast material had not been administered, the likelihood of detecting abnormalities relevant to the patients condition would have been substantially decreased. CT scan was performed according to ALARA (as low as reasonable achievable). COMPARISON: . None FINDINGS: Included great vessels of the aortic arch are grossly unremarkable. Common carotid artery, carotid Bulb, internal carotid artery , and origin of the external carotid artery are well opacified. Vertebral arteries are well opacified. Jugular veins are well opacified. Included lung apices are grossly unremarkable. Thyroid gland appears unremarkable. IMPRESSION: 1. No evidence of stenosis or aneurysm. No evidence of dissection. Electronically signed by Anibal So 10-14-2024 02:47 AM
--- NOTE | 2024-10-14 02:51 | CT Scan Report ---
EXAM: CT angio chest w con CLINICAL HISTORY: Dissection TECHNIQUE: Contiguous axial images were obtained from the neck base through the upper abdomen following intravenous administration of iodinated contrast material. Angiographic images were processed, 3D MIP images were acquired for interpretation. If IV contrast material had not been administered, the likelihood of detecting abnormalities relevant to the patient's condition would have been substantially decreased. Coronal and sagittal 3-D MIPs were likewise performed and indicated to increase the sensitivity of detectin diffuse clinically relevant pathology. CT scan was performed according to ALARA (as low as reasonable achievable). COMPARISON: . None. FINDINGS: No evidence of pulmonary embolism. The central airways are patent. The lungs are clear. No pleural effusion. The heart, aorta, and pulmonary arteries are of normal size and configuration. There are no appreciable coronary artery and aortic atherosclerotic calcifications. No pericardial effusion is identified. The thyroid is unremarkable. No mediastinal, hilar, or axillary lymphadenopathy is noted. No suspicious lytic or sclerotic osseous lesions are identified. IMPRESSION: No evidence of pulmonary embolism or pulmonary disease or aortic dissection. Electronically signed by Anibal So 10-14-2024 02:50 AM
--- NOTE | 2024-10-14 03:58 | History & Physical Report ---
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 ED evaluation reveals no leukocytosis, stable H&H; CMP grossly WNL exception ratio 25.3 glucose 110, alk phos 109; troponin 4.7; lipase 81; CXR without acute findings; chest CTA without evidence of PE or pulmonary disease or aortic dissection; neck CTA with no evidence of stenosis or aneurysm and no evidence of dissection; EKG normal sinus at 78 bpm. 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 No h/o cardiac disease but significant FHx for cardiac disease. Does have history of GERD and cervical radiculopathy as well as some ENT diagnoses- possible that these are at play to an extent. Troponin was not elevated at time of admission and EKG x 2 were WNL. Low suspicion for ACS at present. - CBC w/o leukocytosis, H/H stable - EKG NSR and rate 70s x 2 - will monitor on tele - Troponin 4.7, repeat 2.4 - CXR, Chest CTA, and neck CTA without any acute findings - Echo 11/2020 without significant valvular disease, EF 55 to 60%- pending echo - Lipids 07/2024 total 277, LDL 158, HDL 71, TG 238; on rosuvastatin 10mg - A1c 03/2024 at 5.8% - Maalox prn for reflux - Can consider cardio consult if deemed appropriate, but none at time of admission #HLD- Rosuvastatin #Psych- Lexapro, lorazepam prn #IBS- Dicyclomine prn #Migraines- Fioricet prn #GERD- Famotidine, pantoprazole #Pain- Gabapentin, tramadol Dispo: Admit, med/tele VTE Prophylaxis: Lovenox This document was dictated utilizing [employer]. Please excuse any grammatical errors that may be secondary to use of this software. 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 Pain started at area of right shoulder then radiated across her entire chest from the right to left side, with associated radiation to bilateral shoulder blades, neck, and back with some tension into the ears. Pain lasted for approximately 3 hours in duration and did recur while in the ED. states that the pain actually recurs in random intervals, lasting for 2 to 3 minutes total and then resolving. Initially presenting as a sharp pain but has decreased in severity and is not having any current chest pain at the time of my visit. At the time of onset, she was sitting in her chair and relaxing after having a busy day running errands. States that she has had similar episodes of this happen 2 times before without clear etiology. Has worn a Holter monitor in the past but does not believe that there are any findings for such. 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 Patient states that she does have GERD at baseline and prior to the chest pain she had food, but that this did not feel like her typical GERD/acid reflux. 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 She normally does not have neck stiffness or difficulties with her neck, but her chart does reveal that she has a history of cervical radiculopathy. She is not having any associated SOB, palpitations, N/B, or diaphoresis. Patient with significant family history of cardiac disease. Otherwise denying abdominal pain, diarrhea/constipation, numbness/tingling, LUTS, fever/chills, URI symptoms, or syncope. ED evaluation reveals no leukocytosis, stable H&H; CMP grossly WNL exception ratio 25.3 glucose 110, alk phos 109; troponin 4.7; lipase 81; CXR without acute findings; chest CTA without evidence of PE or pulmonary disease or aortic dissection; neck CTA with no evidence of stenosis or aneurysm and no evidence of dissection; EKG normal sinus at [address] Hobbs's attestation for adjustments/additions to treatment plan. Allergies Allergy/AdvReac Type Severity Reaction Status Date / Time ketoprofen Allergy Severe HIVES Verified 10/14/24 00:38 ketorolac Allergy Severe Hives Verified 10/14/24 00:38 promethazine [From Phenergan] Allergy Intermediate cellulitis Verified 10/14/24 00:38 when received IV form azithromycin AdvReac Severe Abdominal Verified 10/14/24 04:56 Pain,diarrhea, chills cyclobenzaprine AdvReac Mild "WIPES ME Verified 10/14/24 00:38 OUT" Home Medications Medication Instructions Recorded Confirmed Type cholecalciferol (vitamin D3) 50 50 mcg PO QAM 08/01/21 10/14/24 History mcg (2,000 unit) capsule (Vitamin D3) azelastine 137 mcg (0.1 %) nasal 2 spray intranasal BID PRN Nasal 05/07/23 10/14/24 History spray Congestion dicyclomine 10 mg capsule 10 mg PO QID PRN abdominal cramping 06/22/23 10/14/24 History famotidine 20 mg tablet 20 mg PO QAM Heartburn #30 tabs 01/08/24 10/14/24 Rx triamterene 37.5 1 cap PO QAM #30 caps 07/27/24 10/14/24 Rx mg-hydrochlorothiazide 25 mg capsule gabapentin 100 mg capsule 300 mg (3 x 100 mg) PO BID #180 08/04/24 10/14/24 Rx caps rosuvastatin 10 mg tablet (Crestor) 10 mg PO DAILY #90 tabs 08/04/24 10/14/24 Rx lorazepam 0.5 mg tablet 0.5 mg PO BID PRN anxiety #30 tabs 08/27/24 10/14/24 Rx valacyclovir 1 gram tablet 1,000 mg PO QAM #30 tabs 09/07/24 10/14/24 Rx tramadol 50 mg tablet 50 mg PO DAILY PRN pain #20 tabs 09/16/24 10/14/24 Rx potassium chloride 10 mEq 10 meq PO QAM #60 tabs 09/17/24 10/14/24 Rx tablet,extended release dogqriwydy-qwmoabvvqshws-mnqqziqz 1 cap PO Q8H PRN pain #20 caps 10/12/24 10/14/24 Rx 50 mg-300 mg-40 mg capsule (Fioricet) allopurinol 100 mg tablet 200 mg (2 x 100 mg) PO DAILY #60 10/13/24 10/14/24 Rx tabs escitalopram oxalate 20 mg tablet 20 mg PO HS #90 tabs 10/13/24 10/14/24 Rx (Lexapro) lorazepam 1 mg tablet 1 mg PO HS PRN anxiety 10/14/24 10/14/24 History pantoprazole 40 mg tablet,delayed 40 mg PO DAILYBB 10/14/24 10/14/24 History release Past Med/Surg History Problem List Chest pain (Acute) Change in bowel movement Avascular necrosis of bones of both hips Ischial bursitis of left side Osteonecrosis of hip Elevated alkaline phosphatase level Duane's deformity of right heel Retrocalcaneal bursitis (back of heel) S/P myringotomy with insertion of tube ETD (eustachian tube dysfunction) Chronic diarrhea Vitamin D deficiency (Acute) Vitamin B12 deficiency (Acute) Migraine headache (Acute) Insomnia (Acute) IBS (irritable bowel syndrome) (Acute) Anxiety disorder (Acute) Right hip pain Short IA-normal QRS complex syndrome Fatigue Pituitary microadenoma Herpes (Chronic) Lateral epicondylitis of left elbow Left hip pain Hamstring tear Encounter for pre-operative examination Gout Trochanteric bursitis of right hip Dorsalgia of lumbar region Scar neuroma Acute medial meniscus tear of right knee Allergic contact dermatitis Drug reaction Oral allergy syndrome Pancytopenia Wrist pain Carpal tunnel syndrome of right wrist De Quervain's tenosynovitis, right Family history of factor V deficiency Pt heterozygous for Factor V Leiden per 10/01/22 labs Pt aware- no personal hx of PE or DVT- no AC needed per patient; no issues with previous surgeries Hyperlipidemia (Acute) Per PCP records Prediabetes (Acute) Per PCP records Hgb A1C 6.0 09/2022 Geographic tongue History of hip surgery 08/20/21 ([facility]) Left open proximal hamstring repair Medical History Abdominal pain Tongue irritation Mucositis Dysuria Chest pain Gout HTN (hypertension) Environmental allergies Meniere disease Benign tumor of pituitary gland MRI every 3 years IBS (irritable bowel syndrome) GERD (gastroesophageal reflux disease) [place] (hard of hearing) Anxiety Migraines Surgical History History of carpal tunnel surgery of right wrist 12/2022 @ [facility] History of placement of ear tubes RIGHT History of colonoscopy History of hip surgery Rt - repair of labral tear. [employer] [facility] History of tympanoplasty Hx of tonsillectomy H/O oophorectomy H/O: hysterectomy H/O cystoscopy treatment for Female Urethral Syndrome Family History Father Arteriosclerotic cardiovascular disease (ASCVD) Mother Brain tumor PONV (postoperative nausea and vomiting) Grandfather (Paternal) Hypertension Brother Hypertension Sister PONV (postoperative nausea and vomiting) Denies family history of Ovarian cancer Prostate cancer Breast cancer Colorectal cancer Social History Smoking Status: Never smoker Tobacco Type: Cigarettes packs per day: 0; Second Hand Exposure: No; Do You Dip or Chew Tobacco: No; Hx Alcohol Use: Yes Alcohol type: beer and wine Hx Substance Use: No Preferred Language: Telugu Communication Ability: Effective Visual Impairment: No Limitations Hearing Ability: Normal Strike Planning Applications Required: No Beliefs That Will Affect Care: None marital status: Single Current Living Situation: Family current occupational status: employed Feels Safe at Home: Yes Seatbelt Use: always Assistive Devices: Denture - Lower and Glasses Review of Systems Review of Systems: All systems reviewed & are unremarkable except as noted in Subjective Physical Exam Physical Exam: General: No acute distress Skin: Warm and dry Head: Normocephalic, atraumatic Eyes: PERRL, conjunctivae clear, sclera non-icteric; wearing glasses ENT: External ear and ear canal without swelling; nose atraumatic; good dent ition, tongue normal appearance, pharynx normal Neck: Supple, no LAD Cardio: RRR, no M/G/R, S1 and S2 normal; no tenderness to palpation of chest wall. Resp: No respiratory distress, Lungs CTA in all lobes bilaterally, no wheezes, rales, or rhonchi Abdomen: Soft, symmetric, nontender; No masses or hepatosplenomegaly; Bowel sounds normoactive MSK: No deformities; pulses palpable and equal; no edema; normal ROM at neck Neuro: Awake, alert; Sensation intact bilaterally; CN grossly intact Psych: Appropriate mood and affect; good judgement and insight. Results & Data Results & Data Vital Signs (Past 12 Hours) Vital Signs Temp Pulse Pulse Resp BP BP Pulse Ox 10/14/24 02:55 80 10/14/24 02:30 69 18 128/91 95 10/14/24 02:02 72 19 147/82 H 97 10/14/24 01:30 70 16 108/44 L 97 10/13/24 23:20 73 18 96 10/13/24 23:20 36.6 C 73 18 121/70 96 10/13/24 23:20 95 10/13/24 22:33 74 10/13/24 22:20 36.6 C 92 H 18 133/77 96 O2 Del Method 10/14/24 02:55 10/14/24 02:30 Room Air 10/14/24 02:02 Room Air 10/14/24 01:30 Room Air 10/13/24 23:20 Room Air 10/13/24 23:20 Room Air 10/13/24 23:20 Room Air 10/13/24 22:33 10/13/24 22:20 Room Air Laboratory Results 10/13/24 22:48 WBC 7.36 RBC 3.77 L Hgb 13.0 Hct 37.9 MCV 100.5 H MCH 34.5 H MCHC 34.3 RDW Std Deviation 47.6 H RDW Coeff of Lisandra 13.1 Plt Count 176 MPV 10.5 Immature Gran % (Auto) 0.3 Neut % (Auto) 56.2 Lymph % (Auto) 31.9 Perkins % (Auto) 9.0 Eos % (Auto) 2.3 Baso % (Auto) 0.3 Neut # (Auto) 4.14 Lymph # (Auto) 2.35 Perkins # (Auto) 0.66 H Eos # (Auto) 0.17 Baso # (Auto) 0.02 Immature Gran # (Auto) 0.02 Sodium 139 Potassium 3.7 Chloride 102 Carbon Dioxide 31 Anion Gap 6 BUN 22 Creatinine 0.87 Est Cr Clr Drug Dosing 63.2 eGFR 70.74 BUN/Creatinine Ratio 25.3 H Glucose 110 H Calcium 9.5 Total Bilirubin 0.4 AST 15 ALT 17 Alkaline Phosphatase 109 H Troponin I High Sens 4.7 Total Protein 7.6 Albumin 4.2 Globulin 3.4 Albumin/Globulin Ratio 1.2 Lipase 81 Diagnostic Findings Chest X-Ray 10/13/24 23:14 Exam(s): XR CXR 1 VIEW EXAM: XR Chest, 1 View CLINICAL HISTORY: Reason for exam: Chest pain, nonspecific. TECHNIQUE: Frontal view of the chest. COMPARISON: May 24, 2024. FINDINGS: Lungs: Unremarkable. No acute infiltration, atelectasis or mass. Pleural space: Unremarkable. No pneumothorax or pleural fluid. Heart: Unremarkable. No cardiomegaly. Mediastinum: Unremarkable. Normal mediastinal contour. Bones/joints: Mild curvature of the spine. No acute bone abnormality. IMPRESSION: No acute findings in the chest. Electronically signed by: Sesar Montana MD 10/14/24 00:17 AM Chest CTA 10/14/24 00:35 EXAM: CT angio chest w con CLINICAL HISTORY: Dissection TECHNIQUE: Contiguous axial images were obtained from the neck base through the upper abdomen following intravenous administration of iodinated contrast material. Angiographic images were processed, 3D MIP images were acquired for interpretation. If IV contrast material had not been administered, the likelihood of detecting abnormalities relevant to the patient's condition would have been substantially decreased. Coronal and sagittal 3-D MIPs were likewise performed and indicated to increase the sensitivity of detectin diffuse clinically relevant pathology. CT scan was performed according to ALARA (as low as reasonable achievable). COMPARISON: . None. FINDINGS: No evidence of pulmonary embolism. The central airways are patent. The lungs are clear. No pleural effusion. The heart, aorta, and pulmonary arteries are of normal size and configuration. There are no appreciable coronary artery and aortic atherosclerotic calcifications. No pericardial effusion is identified. The thyroid is unremarkable. No mediastinal, hilar, or axillary lymphadenopathy is noted. No suspicious lytic or sclerotic osseous lesions are identified. IMPRESSION: No evidence of pulmonary embolism or pulmonary disease or aortic dissection. Electronically signed by Anibal So 10-14-2024 02:50 AM Neck CTA 10/14/24 00:35 EXAM: CT angio neck with con CLINICAL HISTORY: dissection, chest/neck pain TECHNIQUE: Contrast enhanced thin slice CT angiography scan of the carotid vessels was performed with intravenous contrast. Angiographic images were processed, 3D MIP images were acquired for interpretation.Contiguous axial images were obtained. Reformatted coronal and sagittal images were also reviewed. If IV contrast material had not been administered, the likelihood of detecting abnormalities relevant to the patients condition would have been substantially decreased. CT scan was performed according to ALARA (as low as reasonable achievable). COMPARISON: . None FINDINGS: Included great vessels of the aortic arch are grossly unremarkable. Common carotid artery, carotid Bulb, internal carotid artery , and origin of the external carotid artery are well opacified. Vertebral arteries are well opacified. Jugular veins are well opacified. Included lung apices are grossly unremarkable. Thyroid gland appears unremarkable. IMPRESSION: 1. No evidence of stenosis or aneurysm. No evidence of dissection. Electronically signed by Anibal So 10-14-2024 02:47 AM ECG Additional Comments: Initial EKG: NSR 70 bpm, IA 152, QRS 82, QT/QTc 404/460, PRT */9/34 Second EKG with onset of chest pain: NSR 71 bpm, IA 146, QRS 82, QT/QTc 422/458, PRT */41/52 Code Status & VTE Plan Code Status Full Supervising Physician Co-Signing Physician Notes I personally saw and examined the patient. I independently reviewed the labs, EKG, imaging, problem list, medication list, past medical history and family history. I verified all vasquez points and agree with Shirin Meyer PA-C with the following exceptions and/or additions: 74 year old female presents to the ER with chest pain. Intermittent relapsing chest pressure radiating down both arms. Currently the worse it has been. Not positional or . Worse on palpation of her back but front chest pain O/E HS RRR, no murmurs, Chest CTAB, Abdo SNT, back pain reproducible over paraspinal muscles A/P Chest pain - unclear etiology but effectively NC, PE and dissection ruled out. Doubtful angina given duration of pain. Trial Pantoprazole and Maalox to see if this helps. Chronic intermittent abdominal pain noted on prior GI notes. ?Esophageal spasms Back spasm - trial diazepam PG Care Time/CCT Total # of Minutes Spent Total Time Spent with Patient: Total time spent is greater than 50% in coordination of care (as documented) at patient's floor/unit and/or counseling patient: Coding Level of Care Code 81563 INT INP/OBS CARE MIN Diagnoses Chest pain R07.9
[2024-10-14] MEDS: LORazepam 2 MG/1 ML VIAL IV STA (05:21)
[2024-10-14] MEDS ORDERED: ONDANSETRON INJ 2 MG/ML 2 ML VIAL IV PRN (05:27)
[2024-10-14] MEDS ORDERED: DICYCLOMINE HCL 10 MG CAP PO PRN (05:27)
[2024-10-14] MEDS ORDERED: POLYETHYLENE (MIRALAX) 17 GM PACK PO PRN (05:27)
[2024-10-14] MEDS ORDERED: LORazepam 1 MG TAB PO PRN (05:27)
[2024-10-14] MEDS ORDERED: traMADol HCL 50 MG TABLET PO PRN (05:27)
[2024-10-14] MEDS ORDERED: ALUMINUM/MAGNESIUM SUSP 30 ML UDC PO PRN (05:27)
[2024-10-14] MEDS ORDERED: LORazepam 0.5 MG TAB PO PRN (05:27)
[2024-10-14] MEDS: ALUMINUM/MAGNESIUM SUSP 30 ML UDC PO STA (05:28)
[2024-10-14] MEDS: diazePAM 5 MG/ML 10ML VIAL IV STA (05:28)
[2024-10-14] MEDS: PANTOprazole 40 MG/10 ML SYR IV STA (05:29)
[2024-10-14] MEDS: GABAPENTIN 300 MG CAP PO STA (05:29)
[2024-10-14] MEDS ORDERED: BUTALBITAL/ACETAMIN/CAFFEINE TAB PO PRN (05:38)
[2024-10-14] MEDS: ONDANSETRON INJ 2 MG/ML 2 ML VIAL IV STA (06:43)
[2024-10-14] MEDS: METOCLOPRAMIDE HCL INJ 5 MG/ML 2 ML VIAL IV ONE (07:20)
--- NOTE | 2024-10-14 07:47 | Hospitalist Progress Note ---
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 ED evaluation reveals no leukocytosis, stable H&H; CMP grossly WNL exception ratio 25.3 glucose 110, alk phos 109; troponin 4.7; lipase 81; CXR without acute findings; chest CTA without evidence of PE or pulmonary disease or aortic dissection; neck CTA with no evidence of stenosis or aneurysm and no evidence of dissection; EKG normal sinus at 78 bpm. 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 No h/o cardiac disease but significant FHx for cardiac disease. Does have history of GERD and cervical radiculopathy as well as some ENT diagnoses-. Troponin was not elevated at time of admission and EKG x 2 were WNL. Low suspicion for ACS at present. - Troponin 4.7, repeat 2.4 - CXR, Chest CTA, and neck CTA without any acute findings - Echo 11/2020 without significant valvular disease, EF 55 to 60%- pending echo - Lipids 07/2024 total 277, LDL 158, HDL 71, TG 238; on rosuvastatin 10mg - A1c 03/2024 at 5.8% - Maalox prn for reflux -pt concerned about GB disease, normal LFT will check GB u/s #HLD- Rosuvastatin #Psych- Lexapro, lorazepam prn #IBS- Dicyclomine prn #Migraines- Fioricet prn #GERD- Famotidine, pantoprazole #Pain- Gabapentin, tramadol Dispo: Admit, med/tele VTE Prophylaxis: Lovenox This document was dictated utilizing [employer]. Please excuse any grammatical errors that may be secondary to use of this software. Admission and Anticipated Discharge Date Admission Date: October 14, 2024 Results & Data Results & Data Vital Signs (Past 12 Hours) Vital Signs Temp Pulse Pulse Resp BP BP Pulse Ox 10/14/24 07:21 75 20 141/83 H 97 10/14/24 06:35 109 H 10/14/24 06:31 126/93 10/14/24 06:31 126/93 10/14/24 06:31 126/93 10/14/24 06:30 94 H 14 98 10/14/24 06:15 64 12 98 10/14/24 06:06 67 12 98 10/14/24 06:00 117/64 10/14/24 06:00 117/64 10/14/24 06:00 117/64 10/14/24 06:00 117/64 10/14/24 06:00 117/64 10/14/24 06:00 117/64 10/14/24 06:00 117/64 10/14/24 06:00 117/64 10/14/24 06:00 117/64 10/14/24 05:31 145/74 H 10/14/24 05:31 145/74 H 10/14/24 05:31 145/74 H 10/14/24 05:31 145/74 H 10/14/24 05:30 75 12 98 10/14/24 05:27 10/14/24 05:21 73 15 93 10/14/24 05:09 71 17 94 10/14/24 05:00 13110/14/24 05:00 13110/14/24 05:00 13110/14/24 05:00 13110/14/24 05:00 13162 10/14/24 05:00 13110/14/24 05:00 13110/14/24 05:00 13110/14/24 05:00 13110/14/24 05:00 13110/14/24 05:00 13110/14/24 05:00 131/62 10/14/24 04:57 68 15 98 10/14/24 04:51 75 15 97 10/14/24 04:33 67 19 91 10/14/24 04:30 131/81 10/14/24 04:30 131/81 10/14/24 04:30 131/81 10/14/24 04:30 131/81 10/14/24 04:24 65 12 99 10/14/24 04:21 68 16 99 10/14/24 04:18 67 16 98 10/14/24 04:06 70 20 98 10/14/24 04:00 130/73 10/14/24 04:00 130/73 10/14/24 04:00 130/73 10/14/24 04:00 130/73 10/14/24 04:00 130/73 10/14/24 02:55 80 10/14/24 02:30 69 18 128/91 95 10/14/24 02:02 72 19 147/82 H 97 10/14/24 01:30 70 16 108/44 L 97 10/13/24 23:20 73 18 96 10/13/24 23:20 97.9 F 73 18 121/70 96 10/13/24 23:20 95 10/13/24 22:33 74 10/13/24 22:20 97.9 F 92 H 18 133/77 96 Pulse Ox O2 Del Method O2 Del Method 10/14/24 07:21 Room Air 10/14/24 06:35 10/14/24 06:31 10/14/24 06:31 10/14/24 06:31 10/14/24 06:30 10/14/24 06:15 10/14/24 06:06 10/14/24 06:00 10/14/24 06:00 10/14/24 06:00 10/14/24 06:00 10/14/24 06:00 10/14/24 06:00 10/14/24 06:00 10/14/24 06:00 10/14/24 06:00 10/14/24 05:31 10/14/24 05:31 10/14/24 05:31 10/14/24 05:31 10/14/24 05:30 10/14/24 05:27 98 Room Air 10/14/24 05:21 10/14/24 05:09 10/14/24 05:00 10/14/24 05:00 10/14/24 05:00 10/14/24 05:00 10/14/24 05:00 10/14/24 05:00 10/14/24 05:00 10/14/24 05:00 10/14/24 05:00 10/14/24 05:00 10/14/24 05:00 10/14/24 05:00 10/14/24 04:57 10/14/24 04:51 10/14/24 04:33 10/14/24 04:30 10/14/24 04:30 10/14/24 04:30 10/14/24 04:30 10/14/24 04:24 10/14/24 04:21 10/14/24 04:18 10/14/24 04:06 10/14/24 04:00 10/14/24 04:00 10/14/24 04:00 10/14/24 04:00 10/14/24 04:00 10/14/24 02:55 10/14/24 02:30 Room Air 10/14/24 02:02 Room Air 10/14/24 01:30 Room Air 10/13/24 23:20 Room Air 10/13/24 23:20 Room Air 10/13/24 23:20 Room Air 10/13/24 22:33 10/13/24 22:20 Room Air PG Care Time/CCT Total # of Minutes Spent Total Time Spent with Patient: Total time spent is greater than 50% in coordination of care (as documented) at patient's floor/unit and/or counseling patient: Coding Diagnoses Chest pain R07.9
[2024-10-14] MEDS: PROMETHAZINE HCL 25 MG TAB PO ONE (07:57)
[2024-10-14] MEDS ORDERED: FAMOTIDINE 20 MG TAB PO SCH (09:00)
[2024-10-14] MEDS: FAMOTIDINE 20MG IV PUSH 20 MG/5 ML SYR IV SCH (09:24)
[2024-10-14] MEDS: allopurinoL 100 MG TAB PO SCH (09:24)
[2024-10-14] MEDS: POTASSIUM CHLORIDE 10 MEQ TABCR PO SCH (09:25)
[2024-10-14] MEDS: ROSUVASTATIN CALCIUM 10 MG TAB PO SCH (09:25)
[2024-10-14] MEDS: valACYclovir HCL 500 MG TABLET PO SCH (09:25)
[2024-10-14] MEDS: ACETAMINOPHEN 325 MG TAB PO PRN (09:26)
[2024-10-14] MEDS: TRIAMTERENE/HCTZ 37.5/25MG TAB PO SCH (09:26)
[2024-10-14] MEDS: ENOXAPARIN INJ 40 MG/0.4 ML SYR SQ SCH (09:26)
[2024-10-14] MEDS: GABAPENTIN 300 MG CAP PO SCH (09:26)
[2024-10-14] MEDS: PANTOprazole 40 MG TAB PO SCH (09:26)
--- NOTE | 2024-10-14 09:39 | XCELERA ---
[id number]
--- NOTE | 2024-10-14 09:49 | Electrocardiogram Report ---
Test Reason : Blood Pressure : */* mmHG Vent. Rate : 78 BPM Atrial Rate : 78 BPM P-R Int : 152 ms QRS Dur : 82 ms QT Int : 404 ms P-R-T Axes : * 9 34 degrees QTcB Int : 460 ms Normal sinus rhythm Normal ECG When compared with ECG of 27-Mar-2024 21:51, No significant change was found Confirmed by Ryan Berg ([id number]) on 10/14/2024 9:48:45 AM Referred By: REFERRED SELF Confirmed By: Ryan Berg
--- NOTE | 2024-10-14 09:49 | Electrocardiogram Report ---
Test Reason : Blood Pressure : */* mmHG Vent. Rate : 85 BPM Atrial Rate : 85 BPM P-R Int : 230 ms QRS Dur : 80 ms QT Int : 392 ms P-R-T Axes : 98 40 43 degrees QTcB Int : 466 ms Sinus rhythm with 1st degree A-V block Otherwise normal ECG When compared with ECG of 14-Oct-2024 01:56, CA interval has increased Confirmed by Ryan Berg ([id number]) on 10/14/2024 9:48:52 AM Referred By: REFERRED SELF Confirmed By: Ryan Berg
--- OUTSIDE RECORDS SUMMARY | 2024-10-14 09:58 | External Medical Summary | Continuity of Care Document ---
Author Name Unknown Organization [facility] [address] [facility] [address] [id number] Care Team Providers Care Processing Archivist Name Role Phone Kp Kim Primary Care Physician [phone] Encounter [facility] [id number] Date(s): 10/05/24 - 10/05/24 [facility] [address] [place] [address] [phone] Encounter Diagnosis History of actinic keratoses(Discharge Diagnosis) - 10/05/24 Herpes simplex(Discharge Diagnosis) - 10/05/24 Lentigo(Discharge Diagnosis) - 10/05/24 Seborrheic keratoses(Discharge Diagnosis) - 10/05/24 Sun-damaged skin(Discharge Diagnosis) - 10/05/24 Discharge Disposition: Home or Self Care Attending Physician: MD Judd Sara B Referring Physician: MD Judd Sara B Encounter Type: Clinic Allergies, Adverse Reactions, Alerts Substance Criticality Severity Reaction Reaction Severity Status Percodan Active Phenergan 1 Active oxyCODONE Active 1IV only Assessment and Plan Extracted from: Title:Dermatology Office Visit Note Author:Nadir graves MD, Sara B Date:10/05/24 1. History of actinic kerat oses Warning signs of skin cancer were reviewed. Sun protection reviewed. Follow-up in 12 months, sooner for any changing or growing lesions or acute concerns. I also recommended monthly self skin exams 2. Herpes simplex Acutely flared. Discussed with patient. I was able to find her without insurance in 90-day supply of Valtrex for $53" Rx. She will restart Valtrex 500 mg daily. Risks and benefits discussed. Prescription given plus good Rx coupon 3. Lentigo Chronic, within normal limits 4. Seborrheic keratoses Chronic, within normal limits 5. Sun-damaged skin Chronic, not at goal, I recommend level 30 or higher broadband SPF sunscreen every 2 hours hats and sunglasses. Medications aspirin/butalbital/caffeine 325 mg-50 mg-40 mg oral capsule Start: 08/05/13 3:05:00 PM EST, 1 cap, PO, q4h, PRN: as needed for pain Start Date: 08/05/13 Status: Ordered Repeat number: 1 dicyclomine 10 mg oral capsule Start: 12/16/18 8:29:00 AM EDT Start Date: 12/16/18 Status: Ordered Repeat number: 1 gabapentin 100 mg oral capsule Start: 07/24/21 1:59:00 PM EST, See Instructions, Disp# 90 cap, Refills: 2, take 1 capsule by mouth every morning and 2 capsules at bedtime, Pharmacy: [address] Start Date: 07/24/21 Status: Ordered Quantity: 90.0 Unit: cap Repeat number: 3 hydrochlorothiazide-triamterene 25 mg-37.5 mg oral capsule Start: 08/05/13 3:04:00 PM EST, 1 cap, PO, Daily Start Date: 08/05/13 Status: Ordered Repeat number: 1 Klor-Con 10 oral tablet, extended release Start: 08/05/13 3:05:00 PM EST, 1 tab, PO, bid Start Date: 08/05/13 Status: Ordered Repeat number: 1 lorazepam 0.5 mg oral tablet Start: 08/05/13 3:04:00 PM EST, 1 tab, PO, Daily, PRN: as needed for anxiety Start Date: 08/05/13 Status: Ordered Repeat number: 1 pantoprazole 40 mg oral delayed release tablet Start: 12/16/18 8:29:00 AM EDT Start Date: 12/16/18 Status: Ordered Repeat number: 1 traMADol 50 mg oral tablet Start: 04/16/21 1:35:00 PM EDT, 20 each, take 1 tablet by mouth daily if needed for pain Start Date: 04/16/21 Status: Ordered Repeat number: 1 valACYclovir 500 mg oral tablet Start: 10/05/24 10:36:00 AM EDT, 1 tab, PO, Daily, Disp# 90 tab, Refills: 1 Start Date: 10/05/24 Status: Ordered Quantity: 90.0 Unit: tab Repeat number: 2 Mental Status 10/05/24 Barriers to Learning one year None evide nt Mandatory Health Literacy Documentation Yes Health Literacy Communication Barriers N ever Primary Language Macanese Problem List Condition Confirmation Course Effective Dates Status Health St atus Informant Acetabular labrum tear Confirmed Active Backache Confirmed Active Cervical radiculitis Confirmed Active Cervical spondylosis Confirmed Active Closed fracture of proximal phalanx Confirmed Active Fractured toe Confirmed Active Hip weakness Confirmed Active Foot pain Confirmed Active Hip fx Confirmed Active Glenoid labrum tear Confirmed Active Herpes simplex Confirmed Active Hip pain Confirmed Active Right hip pain Confirmed Active Left hip pain Confirmed Active History of actinic keratoses Confirmed Active IT band syndrome Confirmed Active Pruritus Confirmed Active Lateral epicondylitis, left elbow Confirmed Active Lentigo Confirmed Active Lentigo Confirmed Active Leg weakness Confirmed Active Actinic keratoses Confirmed Active Pituitary tumor Confirmed Active Numbness Confirmed Active Right elbow pain Confirmed Active Leg weakness, bilateral Confirmed Active Pelvic obliquity Confirmed Active Piriformis syndrome Confirmed Active Sacroiliac joint inflamed Confirmed Active Sacroiliac joint pain Confirmed Active Seborrheic keratoses Confirmed Active Skin lesion Confirmed Active Snapping hip Confirmed Active Sun-damaged skin Confirmed Active Trochanteric bursitis Confirmed Active Diagnosis Diagnosis Type Effective Dates Health Status Clinical Service Informant Herpes simplex Discharge Diagnosis 10/05/24 Sun-damaged skin Discharge Diagnosis 10/05/24 History of actinic keratoses Discharge Diagnosis 10/05/24 Lentigo Discharge Diagnosis 10/05/24 Seborrheic keratoses Discharge Diagnosis 10/05/24 Procedures Procedure Date Related Diagnosis Body Site Status Carpal tunnel 2023 Completed Abdominal hysterectomy Co mpleted Tonsil Completed Social History Social History Type Response Smoking Status Never smoked cigaret ilana Sex Female Sex Representation Female (finding) Dermatology Outpatient Note * MD Dutch, Jeanne B: PERFORM Event Display: Dermatology Outpt Note Authored Date: [id number] Chief Complaint routine skin check - no concerns History of Present Illness The patient is a pleasant 73-year-old female presenting to the office for skin check. She has a history of actinic keratosis-last right medial orbital inferiorly. She has recurrent episode of herpes currently on the buttock. She used to take Valtrex 500 mg daily suppressive Roel but it got too expensive. Physical Exam Gen: Well appearing patient, no acute distress. Alert and oriented x3. Good mood. Skin examination completed of face, eyelids, scalp, hair, lips, ears, neck, chest, back, abdomen, upper and lower extremities bilaterally including hands, feet, fingers and toes, fingernails andtoenails, pt declined buttocks and groin. Pt declined a employer relations representative. Patient has a healing plaque on her right medial buttock consistent with a herpes simplex reaction. She has sun damaged skin especially on her face and forearms. She has numerous lentigines within normal limits. An occasional seborrheic keratoses. Assessment/Plan 1. History of actinic keratoses Warning signs of skin cancer were reviewed. Sun protection reviewed. Follow-up in 12 months, sooner for any changing or growing lesions or acute concerns. I also recommended monthly self skin exams 2. Herpes simplex Acutely flared. Discussed with patient. I was able to find her without insurance in 90-day supply of Valtrex for $53" Rx. She will restart Valtrex 500 mg daily. Risks and benefits discussed. Prescription given plus good Rx coupon 3. Lentigo Chronic, within normal limits 4. Seborrheic keratoses Chronic, within normal limits 5. Sun-damaged skin Chronic, not at goal, I recommend level 30 or higher broadband SPF sunscreen every 2 hours hats andsunglasses. Problem List/Past Medical History Ongoing Acetabular labrum tear Actinic keratoses Backache Cervical radiculitis Cervical spondylosis Closed fracture of proximal phalanx Foot pain Fractured toe Glenoid labrum tear Herpes simplex Hip fx Hip pain Hip weakness History of actinic keratoses IT band syndrome Lateral epicondylitis, left elbow Left hip pain Leg weakness Leg weakness, bilateral Lentigo Lentigo Numbness Pelvic obliquity Piriformis syndrome Pituitary tumor Pruritus Right elbow pain Right hip pain Sacroiliac joint inflamed Sacroiliac joint pain Seborrheic keratoses Skin lesion Snapping hip Sun-damaged skin Trochanteric bursitis Procedure/Surgical History •Carpal tunnel| Service Date: 2023•Abdominal hysterectomy•Tonsil Medications ASA/butalbital/caffeine(aspirin/butalbital/caffeine 325 mg-50 mg-40 mg oral capsule), 1 cap, PO, q4h, PRN dicyclomine(dicyclomine 10 mg oral capsule) gabapentin(gabapentin 100 mg oral capsule), See Instructions, 2 refills hydrochlorothiazide-triamterene(hydrochlorothiazide-triamterene 25 mg-37.5 mg oral capsule), 1 cap,PO, Daily lorazepam(lorazepam 0.5 mg oral tablet), 0.5 mg= 1 tab, PO, Daily, PRN pantoprazole(pantoprazole 40 mg oral delayed release tablet) potassium chloride(Klor-Con 10 oral tablet, extended release), 10 mEq= 1 tab, PO, bid traMADol(traMADol 50 mg oral tablet) valACYclovir(valACYclovir 500 mg oral tablet), 500 mg= 1 tab, PO, Daily, 1 refills Allergies Percodan Phenergan oxyCODONE Social History Smoking Status Never smoked cigarettes Family History Family history is negative Electronic Signature on File Electronically Reviewed/Signed by: Jeanne Judd MD Author Signature Dt/Tm:10/05/2024 10:40 AM Department of Dermatology [facility] Patient Care team information Care Team Personnel Name: MD Julio, Kp Cesar Position: Referring DIRECT Member Role: Primary Care Provider Address: [facility] [address] [place] [address] Telecom: [phone] Name: MD Jelly, Yogesh Jc Position: Physician - Sports Medicine [place] Member Role: Lifetime Relationship Address: [address] [place] [address] Telecom: [phone] Care Team Related Persons Name: LORA MCKNIGHT Insurance Providers Guarantor name: KWAME VALDES Health Plan Information #: 2 Payer: [employer] Member Number: [id number] Policy Number: NA Group Number: [id number] Health Plan Information #: 1 Payer: MEDICARE Member Number: [id number] Policy Number: NA Group Number: NA
--- OUTSIDE RECORDS SUMMARY | 2024-10-14 09:58 | External Medical Summary | Summary of Care ---
Author Name Unknown Organization [facility] Address [address] [place] [address] Phone [phone] Care Team Providers Care Computer Repair Technician Name Role Phone Pro, Kp Orozco MD Primary Care Provider [phone] Reason for Visit * Reason Onset Date Comments Appointment 09/29/2024 colonoscopy Encounter Details Date Type Department Care Team (Late st Contact Info) Description 09/29/2024 Telephone Gastroenterology, [facility] [address] [place] [id number] Taj Hong MD [address] [place] [address] Appointment (colonoscopy) Allergies Active Allergy Reactions Criticality Noted Date Comments Cyclobenzaprine Other (Please comment) 08/06/19 18 "zombie like" Ketorolac Hives 08/06/2017 Other - Drugs 04/11/2010 Katrophen- no Sx noted previously Oxycodone Other (Please comment) 09/09/2014 Sever itchy and sleepless Percodan 04/19/2002 Promethazine Hcl 09/14/2009 IV form, caused redness throughout entire arm. Hard, swelling and pain documented as of this encounter (statuses as of 09/29/2024) Medications DYAZIDE CAPS 37.5-25 MG OR one cap by mouth daily Active CALTRATE 600 + D TABS 600-125 MG-IU OR 0 2 Active VALTREX 500 MG PO TABS as needed Active VITAMIN D 1000 UNIT PO CAPS 2 tablets daily Active FISH OIL 1000 MG PO CAPS 1 daily Active KLOR-CON 10 10 MEQ PO TBCR 1 tablet daily Act stephanie LORAZEPAM 0.5 MG PO TABSIndications :Subjective tinnitus once tablet twice a day as needed for tinnitus 60 Tab 5 3 Active aspirin-butalbi flavio-caffeine (FIORINAL) 50-325-40 MG Capsule take 1 to 2 capsules by mouth every 4 hours NEEDED 0 6 Active dicyclomine (BENTYL) 10 MG Capsule Take 1 Capsule by mouth in the morning and 1 Capsule before bedtime. Active pantoprazole (PROTONIX) 40 MG TBEC Take 1 Tablet by mouth in the morning and 1 Tablet before bedtime. Active diphenhydrAMINE HCl 25 MG Oral Tablet Take 1 Tablet by mouth every 6 hours as needed for Itching. Active Escitalopram Oxalate 10 MG Oral Tablet (Lexapro) Take 1 Tablet by mouth in the morning. Takes in the evening . Active Fluocinolone Acetonide Scalp 0.01 % External Oil ([place]-Smoothe/ FS Scalp) Apply to bilateral ears once daily as needed for itching 118.28 mL 4 Active documented as of this encounter (statuses as of 09/29/2024) Active Problems Problem Noted Date Diagnosed Date Acute serous otitis media of right ear 7 Benign neoplasm of pituitary gland 09/14/2009 Uterine leiomyoma 04/13/2002 Meniere's disease 04/13/2002 Endometriosis 04/13/2002 Genital herpes 04/13/2002 Overview (04/14/2017): ICD-10 update of inactive term MIGRAINE, UNSPECIFIED, WITHO UT MENTION OF INTRACTABLE MIGRAINE documented as of this encounter (statuses as of 09/29/2024) Immunizations Name Administration Dates Next Due COVID-19 mRNA, LNP-s, No Pre serve, 2-Dose Series (Moderna) 09/16/2020,08/12/2020 documented as of this encounter Social History Tobacco Use Types Packs/Day Years Used Date Smoking Tobacco: Former Smokeless Tobacco: Never Alcohol Use Standard Drinks/Week Comments Yes 0 (1 standard drink = 0.6 oz pur e alcohol) occasional Comments No Sex and Gender Information Value Date Recorded Sex Assigned at Not on file Legal Sex Female 7:10 AM EST Gender Identity Not on file Sexual Orientation Not on file documented as of this encounter Functional Status * Are you deaf or do you have serious difficulty hearing? Answer Date of Assessment Author No 03/10/2015 9:00 AM EDT Azeb Franco imberly A, TECH * Are you blind or do you have serious difficulty seeing, even when wearing glasses? Answer Date of Assessment Author No 03/10/2015 9:00 AM EDT FinAzeb jordan imberly A, TECH * Do you have serious difficulty walking or climbing stairs? (5 years old or older) Answer Date of Assessment Author No 03/10/2015 9:00 AM EDT FinAzeb jordan imberly A, TECH * Do you have difficulty dressing or bathing? (5 years old or older) Answer Date of Assessment Author No 03/10/2015 9:00 AM EDT Azeb Franco imberly A, TECH * Because of a physical, mental, or emotional condition, do you have difficulty doing errands alone such as visiting a doctor’s office or shopping? (15 years old or older) Answer Date of Assessment Author No 03/10/2015 9:00 AM EDT Azeb Franco imberly A, TECH documented as of this encounter Mental Status * Because of a physical, mental, or emotional condition, do you have serious difficulty concentrating, remembering, or making decisions? (5 years old or older) Answer Entry Date Author No 03/10/2015 9:00 AM EDT Azeb Franco imberly A, TECH documented in this encounter Miscellaneous Notes * Telephone Encounter - Margoth Cardenas OSA - 09/29/2024 9:42 AM EDT Lmm for pt to return call to schedule colonoscopy CHARLES Weaver 09/29/2024 9:45 AM documented in this encounter Plan of Treatment Upcoming Encounters Date Type Department Care Team (Late st Contact Info) Description 10/25/2024 2:30 PM EDT Office Visit Orthopaedics [facility] [address] [place] [id number] Nancy Razo PA-C [address] [place] [phone] 01/19/2025 1:30 PM EDT Office Visit Otolaryngology [facility] [address] [place] [address] Rosibel Collado PA-C [address] [place] [phone] 04/20/2025 2:30 PM EDT Office Visit Otolaryngology [facility] [address] [place] [address] Rosibel Collado PA-C [address] [place] [phone] 07/27/2025 2:30 PM EST Office Visit Otolaryngology [facility] [address] [place] [address] Rosibel Collado PA-C [address] [place] [address] Scheduled Procedures Name Priority Associated Diagnoses Date/Ti me COLONOSCOPY FLEXIBLE PROXIMA L DIAGNOSTIC Recall Encounter for screening colonoscopy Health Maintenance Due Date Last Done Comments DXA Scan 1952 Lipid Panel 1952 Depression Screening 1964 Hepatitis C Screening 02/11/1970 DTap/Tdap Vaccines (1 - Tdap) 02/11/1971 Mammogram 1992 Cologuard 02/11/1997 Fecal Occult Blood Test 02/11/1997 Sigmoidoscopy 02/11/1997 Zoster Vaccines (1 of 2) 02/11/2002 Pneumococcal Vaccine: 50+ Years (2 of 2 - PCV) 04/02/2013 04/02/2012 COVID-19 Vaccine (3 - 2023-2 5 season) 2024 09/16/2020, 08/12/2020 Influenza Vaccine (FLU shot) (#1) 2024 Colonoscopy 08/19/2027 08/19/2017, 08/19/2017 Colorectal Cancer Screening 08/19/2027 HPV (Gardasil) Vaccine Aged Out No lo nger eligible based on patient's age to complete this topic Hepatitis B Vaccine Aged Out No longe r eligible based on patient's age to complete this topic MENINGOCOCCAL (MENACTRA/MENVEO) Aged Out No longer eligible b ased on patient's age to complete this topic Meningitis B Vaccine (Bexsero/Trumemba) Aged Out No longer eligible b ased on patient's age to complete this topic documented as of this encounter Medical Devices Implanted Type Area Security Patrol Driver Device Identifier Shelf Expiration Date Model / Serial / Lot Tube Ventilation Henson Beveled - [id number] Implanted:Qty: 1 on 03/14/2022 by Jose Luis Luu DO at OR [facility] Right: Ear [employer] 12/06/2031 [id number] / / [id number] Tube Modified T [id number] - [id number] Implanted:Qty: 1 on 05/08/2023 by Jose Luis Luu DO at OR [facility] Right: Ear [employer] 12/29/2030 [id number] / / [id number] documented as of this encounter Care Teams Computer Repair Technician Relationship Specialty Start Date End Date Pro, Kp Orozco MD [address] [place] [address] PCP - General Internal Medicine 03/05/17 documented as of this encounter
--- OUTSIDE RECORDS SUMMARY | 2024-10-14 09:58 | External Medical Summary | Summary of Care ---
Author Name Unknown Organization [facility] Address [address] [place] [address] Phone [phone] Care Team Providers Care Still Runner Name Role Phone Pro, Kp Orozco MD Primary Care Provider [phone] Reason for Visit * Reason Comments NEW PATIENT New pt ref by Roberta GARCIA for digestive issues. Previously seen by [facility] summer 2023. Pt has hx of IBS. Was having loose stools with lower abd pain. Increase gas w/ occasional incontinence. Also had a hemorrhoid flare. Pt states sx have resolved. * Evaluate & Treat - Unlimited Visits (Within 30 days (routine)) - Authorized Specialty Diagnoses / Procedures Referred By Azalea t Referred To Contact Gastroenterology Diagnoses Digestive symptoms Roberta Escalante PA-C [address] [place] [address] Phone: tel: fax: Referral ID Status Reason Start Date Expiration Date Visits Requested Visits Authorized [id number] Authorized Specialty Services Required 09/30/2024 [id number] Encounter Details Date Type Department Care Team (Late st Contact Info) Description 10/04/2024 3:30 PM EDT Office Visit Gastroenterology, [facility] [address] [phone] Sophia Zhang CRNP [address] [phone] Irritable bowel syndrome with both constipation and diarrhea*; Gastroesophageal reflux disease, unspecified whether esophagitis present; History of colonic polyps Allergies Active Allergy Reactions Criticality Noted Date Comments Cyclobenzaprine Other (Please comment) 08/06/19 18 "zombie like" Ketorolac Hives 08/06/2017 Other - Drugs 04/11/2010 Katrophen- no Sx noted previously Oxycodone Other (Please comment) 09/09/2014 Sever itchy and sleepless Percodan 04/19/2002 Promethazine Hcl 09/14/2009 IV form, caused redness throughout entire arm. Hard, swelling and pain documented as of this encounter (statuses as of 10/05/2024) Medications DYAZIDE CAPS 37.5-25 MG OR one [...] Fluocinolone Acetonide Scalp 0.01 % External Oil ([place]-Smoothe/ FS Scalp) Apply to bilateral ears once daily as needed for itching 118.28 mL 4 Active Allopurinol 100 MG Oral Tablet (Zyloprim) Take 2 Tablets by mouth in the morning. 5 Active Rosuvastatin Calcium 10 MG Oral Tablet (Crestor) 1 Tablet. 5 Active traMADol HCl 50 MG Oral Tablet (Ultram) TAKE 1 TAB ORALLY DAILY NEEDED FOR PAIN 5 Active Gabapentin 100 MG Oral Capsule (Neurontin) TAKE 3 CAP ORALLY TWICE A DAY 5 Active Famotidine 20 MG Oral Tablet (Pepcid) TAKE 1 TABLET BY MOUTH ONCE DAILY IN THE MORNING FOR HEARTBURN 5 Active documented as of this encounter (statuses as of 10/05/2024) Active Problems Problem Noted Date Diagnosed Date Acute serous otitis media of right ear 7 Benign neoplasm of pituitary gland 09/14/2009 Uterine leiomyoma 04/13/2002 Meniere's disease 04/13/2002 Endometriosis 04/13/2002 Genital herpes 04/13/2002 Overview (04/14/2017): ICD-10 update of inactive term MIGRAINE, UNSPECIFIED, WITHO UT MENTION OF INTRACTABLE MIGRAINE documented as of this encounter (statuses as of 10/05/2024) Immunizations Name Administration Dates Next Due COVID-19 [...] on file documented as of this encounter Last Filed Vital Signs Vital Sign Reading Time Taken Comments Blood Pressure 114/68 10/04/2024 3:37 PM EDT Pulse - - Temperature 36.7 °C (98.1 °F) 10/04/2024 3:37 PM ED T Respiratory Rate - - Oxygen Saturation - - Inhaled Oxygen Concentration - - Weight 82.6 kg (182 lb) 10/04/2024 3:37 PM EDT Height 177.8 cm (5' 10") 10/04/2024 3:37 PM EDT Body Mass Index 26.11 10/04/2024 3:37 PM EDT documented in this encounter Functional Status * Are you deaf or do you have serious difficulty hearing? Answer Date of Assessment Author No 03/10/2015 9:00 AM EDT Finlan, K imberly A, TECH * Are you blind or do you have serious difficulty seeing, even when wearing glasses? Answer Date of Assessment Author No 03/10/2015 9:00 AM EDT Finlan, K imberly A, TECH * Do you have serious difficulty walking or climbing stairs? (5 years old or older) Answer Date of Assessment Author No 03/10/2015 9:00 AM EDT Finlan, K imberly A, TECH * Do you have difficulty dressing or bathing? (5 years old or older) Answer Date of Assessment Author No 03/10/2015 9:00 AM EDT Finlan, K imberly A, TECH * Because of a physical, mental, or emotional condition, do you have difficulty doing errands alone such as visiting a doctor’s office or shopping? (15 years old or older) Answer Date of Assessment Author No 03/10/2015 9:00 AM EDT Finlan, K imberly A, TECH documented as of this encounter Mental Status * Because of a physical, mental, or emotional condition, do you have serious difficulty concentrating, remembering, or making decisions? (5 years old or older) Answer Entry Date Author No 03/10/2015 9:00 AM EDT Finlan, K imberly A, TECH documented in this encounter Progress Notes * Sophia Zhang CRNP - 10/04/2024 3:29 PM EDT Consult requested by REF: ROBERTA ESCALANTE [address] [address] (office) [phone] (fax) CC: Abd pain HPI: 74 year old female pt of Kp Kim MD with a hx of many years, migraines, endometriosis, HSV presents today for chronic, intermittent, sometimes severe, abdominal pain /discomfort which waxes and wanes, usually really low/suprapubic. Also has some reflux, recently well-controlled. Last year, she had a lot of stomach pain diarrhea, "not feeling well anywhere," saw [facility], underwentmultiple tests w/o abnormalities. Sometimes get "attacks," severe pain, watery BMs, vomiting lasting about 2 minutes, sometimes happens 2-3 times in one evening - most recently in 2023. Doesn't typically get post prandial fullness/bloating. About 6 weeks agoago had a lot of lower abd discomfort, "really gassy," some fecal incontinence of soft/sticky fecal material. This lasted 3 week, then spontaneously resolved. Last week, she started w a hemorrhoid. Preparation H/Tuck which resolved the hemorrhoid. Now passing "normal BMs, one a day, formed, brown." No blood in bowel movements, no black tarry bowel movements, no nighttime wakening defecation. No unintentional weight loss. Takes Protonix regularly. Wasn't aware that the dicyclomine was for lower abd pain, so didn't take it during the episode of suprapubic pain that started 6 wks ago and resolved 3 wks ago. NSAIDS: 600 - 800 mg of Ibuprofen about 3x/week. Caffeine: one cup/day Artificial Sweeteners: 2 splendas/day Dairy: one creamer every morning. Soda: Sprite about 10 6 oz 3-4 x/week. Diagnostic Testing: CTAP w IV 2023 at [facility]: 1.No acute findings in the abdomen or pelvis. 2. 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 Clinical correlation and MRI follow-up should be considered. 3. Advanced L1/L2 degenerative disc disease. No acute fracture or destructive osseous abnormalities are noted. Liver US at [facility] 2022: 1. Hepatic steatosis. 2. Unremarkable gallbladder. 3. No biliary ductal dilation. EGD 2022 Case: - Normal esophagus. - Small hiatal hernia. - Gastritis. Biopsied. - Normal examined duodenum. Biopsied. Colonoscopy 2022 Dr. Brunson: - One 5 mm polyp at the ileocecal valve, removed with a cold snare. Resected and retrieved. - Non-bleeding internal hemorrhoids. - Several random biopsies were obtained in the entire colon. - Fluid aspiration was performed. A. Duodenum (biopsy): - Multiple benign strips of small bowel mucosa with no pathologic diagnoses are seen. - Villous architecture is maintained. - The clinical history of diarrhea is noted. B. Stomach, antrum (biopsy): - Multiple benign strips of antral mucosa with no pathologic diagnoses are seen. - The clinical history of vomiting and GERD is noted. - See comment. C. Ileocecal valve (polypectomy): - Tubular adenoma. D. Colon, "random colon biopsy" (biopsy): - Multiple benign strips of colonic mucosa with no pathologic diagnoses are seen. Colonoscopy 2018: - Diverticulosis in the sigmoid colon. - The examination was otherwise normal. - No specimens collected. ROS: + as per HPI A total of 12 systems were reviewed, all others (-). ALLERGIES: Review of patient's allergies indicates: Allergen Reactions Flexeril [Cyclobenzaprine] Other (Please comment) "zombie like" Ketorolac Hives Other - Drugs Katrophen- no Sx noted previously Oxycodone Other (Please comment) Sever itchy and sleepless Percodan Phenergan [Promethazine Hcl] IV form, caused redness throughout entire arm. Hard, swelling and pain PMH/PSH/Soc Hx reviewed, significant for: Past Medical History: Diagnosis Date Acute serous otitis media of right ear 12/06/2016 Benign neoplasm of pituitary gland (HCC) 09/14/2009 Endometriosis 04/13/2002 Genital herpes, unspecified 04/13/2002 Meniere's disease 04/13/2002 Migraine Migraines,unspecified Past Surgical History: Procedure Laterality Date COLONOSCOPY, DIAGNOSTIC (RECTUM) 08/19/2017 diverticulosis, repeat 10 yrs/COLONOSCOPY FLEXIBLE PROXIMAL DIAGNOSTIC performed by Corey Lyon MD at ENDOSCOPY [facility] CREATE EARDRUM OPENING,GEN'L ANESTH Right 03/14/2022 TYMPANOSTOMY INSERTION TUBE GENERAL ANESTHESIA performed by Jose Luis Luu DO at OR [facility] CREATE EARDRUM OPENING,GEN'L ANESTH Right 05/08/2023 TYMPANOSTOMY INSERTION TUBE GENERAL ANESTHESIA performed by Jose Luis Luu DO at OR [facility] MISCELLANEOUS ORDER x2 laproscopies for endometriosis over 10 years ago Social History Socioeconomic History Marital status: Single Tobacco Use Smoking status: Former Smokeless tobacco: Never Substance and Sexual Activity Alcohol use: Yes Comment: occasional Drug use: No Sexual activity: Not Currently Social Needs Food Insecurity: Unknown (09/04/2022) [facility] Hunger Vital Sign Worried About Running Out of Food in the Last Year: Never true Transportation Needs: Unknown (09/04/2022) Received from [facility], [facility] PRAPARE - Transportation Lack of Transportation (Medical): No Family history reviewed and significant for: Family History Problem Relation Name Age of Onset Cancer Mother brain Heart Disorder Father Cancer Grandmother (Maternal) stomach Current Outpatient Medications Medication Sig Dispense Refill Fluocinolone Acetonide Scalp 0.01 % External Oil ([place]-Smoothe/FS Scalp) Apply to bilateral ears once daily as needed for itching 118.28 mL 0 Escitalopram Oxalate 10 MG Oral Tablet (Lexapro) Take 1 Tablet by mouth in the morning. Takes in the evening . diphenhydrAMINE HCl 25 MG Oral Tablet Take 1 Tablet by mouth every 6 hours as needed for Itching. dicyclomine (BENTYL) 10 MG Capsule Take 1 Capsule by mouth in the morning and 1 Capsule before bedtime. pantoprazole (PROTONIX) 40 MG TBEC Take 1 Tablet by mouth in the morning and 1 Tablet before bedtime. sixgmxo-dhmyxcqjhs-lpyzhrex (FIORINAL) 50-325-40 MG Capsule take 1 to 2 capsules by mouth every 4 hours NEEDED 0 LORAZEPAM 0.5 MG PO TABS once tablet twice a day as needed for tinnitus 60 Tab 5 KLOR-CON 10 10 MEQ PO TBCR 1 tablet daily FISH OIL 1000 MG PO CAPS 1 daily VITAMIN D 1000 UNIT PO CAPS 2 tablets daily VALTREX 500 MG PO TABS as needed CALTRATE 600 + D TABS 600-125 MG-IU OR 0 DYAZIDE CAPS 37.5-25 MG OR one cap by mouth daily No current facility-administered medications for this visit. EXAM: BP 114/68 | Temp 36.7 °C (98.1 °F) | Ht 1.778 m (5' 10") | Wt 82.6 kg (182 lb) | LMP 04/05/2002 |BMI 26.11 kg/m² | BSA 2.02 m² GENERAL: 74 year old female well developed and well nourished in no acute distress SKIN: no rashes, ulcers, or spider angiomata HEENT: normocephalic, sclera clear, pharynx normal NECK: supple, no lymphadenopathy, no masses or thyroid enlargement LUNGS: clear to auscultation anterior and posterior HEART: regular rate & rhythm, no murmurs and no gallops ABDOMEN: normo-active bowel sounds, soft, non-tender, non-distended no masses, no hepatosplenomegaly, no rebound or guarding, no bruits EXTREMITIES: no palmar erythema, no edema, no skin discoloration, no clubbing, no cyanosis NEURO: no lateralizing findings, Sensory/Motor grossly normal IMPRESSION/RECOMMENDATIONS: 74 year old female with Irritable bowel syndrome with both constipation and diarrhea (Primary) - Discussion regarding the pathophysiology and natural course of IBS. Encouraged to read about the OSMEL criteria for IBS. - Dicyclomine 10mg QID prn lower abd pain/cramping - decrease artificial sweeteners, NSAIDs, soda as all these can cause chronic abdominal discomfort,loose stools bloating. Gastroesophageal reflux disease, unspecified whether esophagitis present - continue pantoprazole 40mg BID. Recheck in 6m, if GERD well controlled, will consider decreasing freq of pantoprazole. Hx of colon polyps: Due for colonoscopy 2025. I spent a total of 60 minutes on the date of service in review of patient's record, and previously obtained information in person and appropriate medical visit, discussion and education of plan, withpatient and/or caregiver, placing orders for tests/referral/procedures as medically necessary and documentation of pertinent clinical information in patient's medical records for their visit today. CORNELIUS Escudero [facility] Gastroenterology documented in this encounter Nursing Notes * Rosi Che CMA - 10/04/2024 3:37 PM EDT Chief Complaint Patient presents with NEW PATIENT New pt ref by Roberta GARCIA for digestive issues. Previously seen by [facility] summer 2023. Pt has hx of IBS. Was having loose stools with lower abd pain. Increase gas w/ occasional incontinence.Also had a hemorrhoid flare. Pt states sx have resolved. documented in this encounter Plan of Treatment Upcoming Encounters Date Type Department Care Team (Late st Contact Info) Description 10/25/2024 2:30 PM EDT Office Visit Orthopaedics [facility] [address] [place] [phone] Nancy Razo PA-C [address] [place] [phone] 04/20/2025 2:30 PM EDT Office Visit Otolaryngology [facility] [address] [place] [phone] Rosibel Collado PA-C [address] [place] [phone] 07/27/2025 2:30 PM EST Office Visit Otolaryngology [facility] [address] [place] [phone] Rosibel Collado PA-C [address] [place] [phone] Scheduled Procedures Name Priority Associated Diagnoses Date/Ti [...] (2 of 2 - PCV) 04/02/2013 04/02/2012 Influenza Vaccine (FLU shot) (#1) 2024 COVID-19 Vaccine ( season) 2024 04/11/2024, 04/26/2022, 09/16/2020, Additional history exists Colonoscopy 08/19/2027 08/19/2017, 08/19/2017 Colorectal Cancer Screening 08/19/2027 HPV (Gardasil) Vaccine Aged Out No lo nger eligible based on patient's age to complete this topic Hepatitis B Vaccine Aged Out No longe r eligible based on patient's age to complete this topic MENINGOCOCCAL (MENACTRA/MENVEO) Aged Out No longer eligible based on patient's age to complete this topic Meningitis B Vaccine (Bexsero/Trumemba) Aged Out No longer eligible based on patient's age to complete this topic documented as of this encounter Medical Devices Implanted Type Area Submarine Advisory Team Watch Officer Device Identifier Shelf Expiration Date Model / Serial / Lot Tube Ventilation Henson Beveled - [id number] Implanted:Qty: 1 on 03/14/2022 by Jose Luis Luu DO at OR [facility] Right: Ear [employer] 12/06/2031 [id number] / / [id number] Tube Modified T [id number] - [id number] Implanted:Qty: 1 on 05/08/2023 by Jose Luis Luu DO at OR [facility] Right: Ear [employer] 12/29/2030 [id number] / / [id number] documented as of this encounter Visit Diagnoses Diagnosis Irritable bowel syndrome with both constipation and diarrhea- Primary Gastroesophageal reflux disease, unspecified whether esophagitis present History of colonic polyps Personal history of colonic polyps documented in this encounter Care Teams Still Runner Relationship Specialty Start Date End Date Pro, Kp Orozco MD [address] [place] [address] PCP - General Internal Medicine 03/05/17 documented as of this encounter
--- OUTSIDE RECORDS SUMMARY | 2024-10-14 09:58 | External Medical Summary | Summary of Care ---
Author Name Unknown Organization [facility] Address [address] [place] [address] Phone [phone] Care Team Providers Care Public Address System Operator Name Role Phone Pro, Kp Orozco MD Primary Care Provider [phone]- [phone] Reason for Referral * Evaluate & Treat - Unlimited Visits (Within 30 days (routine)) - Authorized Specialty Diagnoses / Procedures Referred By Azalea vickers Referred To Contact Orthopaedic Surgery / Orthopedics Diagnoses Dupuytren contracture of left hand Ganglion cyst of joint of finger of right hand SharerMellisa PA-C [address] [place] [address] Phone: tel: fax: Referral ID Status Reason Start Date Expiration Date Visits Requested Visits Authorized [id number] Authorized Specialty Services Required 09/29/2024 999 [id number] Question Answer Referral Priority Within 30 days (routine) Where should this appointment be scheduled? [facility] What body part is the patient being seen for? Hand What condition is the patient being seen for? Sprain/Strain/Tear/Other Reason for Visit * Reason Comments NEW PATIENT Bumps in L in palm u nder 3rd finger & R middle finger knuckle Ongoing for: 10m Encounter Details Date Type Department Care Team (Late st Contact Info) Description 09/29/2024 9:00 AM EDT Office Visit Orthopaedics [facility] [address] [place] [phone] Sharer, Mellisa Sprague PA-C [address] [place] [phone] Dupuytren contracture of left hand*; Cyst of joint of hand, right Allergies Active Allergy Reactions Criticality Noted Date [...] Fluocinolone Acetonide Scalp 0.01 % External Oil ([place]-Smoothe/ FS Scalp) Apply to bilateral ears once [...] of Assessment Author No 03/10/2015 9:00 AM Azeb Mas TECH * Are you blind or do you have serious difficulty seeing, even when wearing glasses? Answer Date of Assessment Author No 03/10/2015 9:00 AM Azeb Mas TECH * Do you have serious difficulty walking or climbing stairs? (5 years old or older) Answer Date of Assessment Author No 03/10/2015 9:00 AM Azeb Mas TECH * Do you have difficulty dressing or bathing? (5 years old or older) Answer Date of Assessment Author No 03/10/2015 9:00 AM Azeb Mas TECH * Because of a physical, mental, or emotional condition, do you have difficulty doing errands alone such as visiting a doctor’s office or shopping? (15 years old or older) Answer Date of Assessment Author No 03/10/2015 9:00 AM Azeb Mas TECH documented as of this encounter Mental Status * Because of a physical, mental, or emotional condition, do you have serious difficulty concentrating, remembering, or making decisions? (5 years old or older) Answer Entry Date Author No 03/10/2015 9:00 AM Azeb Mas TECH documented in this encounter Progress Notes * Sharer, Mellisa Sprague PA-C - 09/29/2024 9:47 AM EDT Jessica Mcnamara is a 74 year old female who presents for consultation to [facility] for left hand injury/pain. Consult requested by Self . Jessica Mcnamara is here unaccompanied History: Patient is a 74 year old female here today with left hand/finger pain. Reports pain started approximately 10 months ago. She complains of pain and swelling along right hand at the PIP joint. Notes a painful lump which is gradually worsening. She notes pain if she bumps the area. She has no difficulty with daily activities. She also mentions a irregularity in her left palm. She has no difficulty with use of the hand or finger motion. She denies any left hand pain Review of systems: All others negative except those noted above in HPI. Past Medical History: Diagnosis Date Acute serous otitis media of right ear 12/06/2016 Benign neoplasm of pituitary gland (HCC) 09/14/2009 Endometriosis 04/13/2002 Genital herpes, unspecified 04/13/2002 Meniere's disease 04/13/2002 Migraine Migraines,unspecified Family History Problem Relation Name Age of Onset Cancer Mother brain Heart Disorder Father Cancer Grandmother (Maternal) stomach Social History Socioeconomic History Marital status: Single Spouse name: Not on file Number of children: Not on file Years of education: Not on file Highest education level: Not on file Occupational History Not on file Tobacco Use Smoking status: Former Smokeless tobacco: Never Substance and Sexual Activity Alcohol use: Yes Comment: occasional Drug use: No Sexual activity: Not Currently Other Topics Concern Not on file Social History Narrative Not on file Social Needs Financial Resource Strain: Not on file Food Insecurity: Unknown (09/04/2022) Received from [facility], [facility] Hunger Vital Sign Worried About Running Out of Food in the Last Year: Never true Ran Out of Food in the Last Year: Not on file Transportation Needs: Unknown (09/04/2022) Received from [facility] [address], [facility] PRAPARE - Transportation Lack of Transportation (Medical): No Lack of Transportation (Non-Medical): Not on file Social Connections: Not on file Housing Stability: Not on file Past Surgical History: Procedure Laterality Date COLONOSCOPY, DIAGNOSTIC (RECTUM) 08/19/2017 diverticulosis, repeat 10 yrs/COLONOSCOPY FLEXIBLE PROXIMAL DIAGNOSTIC performed by Corey Lyon MD at [facility] CREATE EARDRUM OPENING,GEN'L ANESTH Right 03/14/2022 TYMPANOSTOMY INSERTION TUBE GENERAL ANESTHESIA performed by Jose Luis Luu DO at OR [facility] CREATE EARDRUM OPENING,GEN'L ANESTH Right 05/08/2023 TYMPANOSTOMY INSERTION TUBE GENERAL ANESTHESIA performed by Jose Luis Luu DO at OR [facility] MISCELLANEOUS ORDER x2 laproscopies for endometriosis over 10 years ago Physical Exam There were no vitals filed for this visit. Estimated body mass index is 25.54 kg/m² as calculated from the following: Height as of 03/18/24: 1.778 m (5' 10"). Weight as of an earlier encounter on 09/29/24: 80.7 kg (178 lb). General: generally well-nourished and in no acute distress HEENT: normocephalic, atraumatic, sclera anicteric. Psych: mood and affect normal , cooperative Card: Peripheral pulses: normal in affected extremity (s) Resp: equal chest rise, non-tachypneic, non-labored breathing Skin: no rash, normal Neuro: Coordination: normal; Sensation: normal on affected extremity (s) MSK: R hand cyst 3 finger PIP joint 2nd [facility] Hand Exam, Bilateral Inspection: Right hand with mass along extensor surface of the PIP joint of the middle finger. [place] with palpable nodule along the palm. Palm is nontender to palpation Palpation: Right hand with rounded firm rubbery mass along extensor surface of the PIP joint middlefinger. Mild tenderness of the PIP joint right middle finger Range of Motion: Range of motion: symmetric and normal in both hands Rotation, angulation, or crossover: no Strength: Cocoa Powder Mixer Operator - 5/5 Finger spread - 5/5 Flex - 5/5 Ext - 5/5 Thumb pinch -5/5 Radiology (I have personally reviewed the following films): X-rays of the bilateral hands were obtained today and reviewed with patient. Those x-rays reveal degenerative changes but no acute fracturedislocation. Assessment and Plan: Dupuytren contracture of left hand (Primary) - XR HAND 3 OR MORE VIEWS - ORTHOPAEDICS REFERRAL OP Cyst of joint of hand, right - XR HAND 3 OR MORE VIEWS - ORTHOPAEDICS REFERRAL OP Discussed etiology and typical course. Advised ganglion cyst may resolve spontaneously without intervention, although may recur. Treatment is not necessary unless desired by the patient. Discussed treatment options including observation, aspiration or surgical excision. Patient feels this is bothersome and would like surgical consult. Hand referral placed. Mellisa Cox PA-C Orthopaedics [facility] [address] [place] [phone] documented in this encounter Nursing Notes * Sasha Yung CMA - 09/29/2024 9:10 AM EDT Here for Today's visit regarding: Bumps in L in palm under 3rd finger & R middle finger knuckle Location of pain: Bumps in L in palm under 3rd finger & R middle finger knuckle Injury: pt denies any injuries Recent Imaging: n/a Prior treatment: n/a Prior Surgery: n/a Date of injury or symptoms started: 10m Goals for this appointment: eval & proper plan of care documented in this encounter Plan of Treatment Upcoming Encounters Date Type Department Care Team (Late st Contact Info) Description 10/25/2024 2:30 PM EDT Office Visit Orthopaedics [facility] [address] [place] [phone] Nancy Razo PA-C [address] [place] [phone] 01/19/2025 1:30 PM EDT Office Visit Otolaryngology [facility] [address] [place] [address] Rosibel Collado PA-C [address] [place] [phone] 04/20/2025 2:30 PM EDT Office Visit Otolaryngology [facility] [address] [place] [address] Rosibel Collado PA-C [address] [place] [address] 07/27/2025 2:30 PM EST Office Visit Otolaryngology [facility] [address] [place] [address] Rosibel Collado PA-C [address] [place] [address] Scheduled Procedures Name Priority Associated Diagnoses Date/Ti me COLONOSCOPY FLEXIBLE PROXIMA L DIAGNOSTIC Recall Encounter for screening colonoscopy Scheduled Referrals Name Type Priority Associated Diagnoses Orde r Schedule ORTHOPAEDICS REFERRAL OP Referral Within 30 days (routine) Dupuytren contracture of left hand Cyst of joint of hand, right Ordered: 09/29/2024 Health Maintenance Due Date Last Done Comments [...] this encounter Medical Devices Implanted Type Area Ticket Manager Device Identifier Shelf Expiration Date Model / Serial / Lot Tube Ventilation Henson Beveled - [id number] Implanted:Qty: 1 on 03/14/2022 by Jose Luis Luu DO at OR [facility] Right: Ear [employer] 12/06/2031 [id number] / / [id number] Tube Modified T [id number] - [id number] Implanted:Qty: 1 on 05/08/2023 by Jose Luis Luu DO at OR [facility] Right: Ear [employer] 12/29/2030 [id number] / / [id number] documented as of this encounter Procedures Procedure Name Priority Date/Time Associated Diagnosis Comments XR HAND 3 OR MORE VIEWS Routine 09/29/2024 9:20 AM EDT Dupuytren contracture of left hand Cyst of joint of hand, right documented in this encounter Results * XR HAND 3 OR MORE VIEWS (09/29/2024 9:20 AM EDT) Anatomical Region Laterality Modality Upper Extremity, Hand Digital Ra diography 09/29/2024 4:49 PM EDT Impressions 09/29/2024 4:47 PM EDT IMPRESSION 1. No acute bilateral hand osseous finding. No convincing evidence for inflammatory arthropathy. 2. No convincing soft tissue mass. For persistent or unexplained symptoms, cross-sectional imaging could be obtained, if clinically indicated. Narrative 09/29/2024 4:47 PM EDT EXAM Bilat UPREXT XR HAND 3 OR MORE VIEWS - 09/29/2024 9:20 am HISTORY lumps in fingers COMPARISON No Comparison. TECHNIQUE Radiography of the Bilat UPREXT was performed. FINDINGS Bilateral hands: No acute fracture or dislocation. No erosion or focal soft tissue swelling. Scattered mild to moderate bilateral degenerative changes, most pronounced at the bilateral short CMCs. No convincing soft tissue mass. Chronic ulnar styloid deformity. Right greater than left triangular fibrocartilage mineralization. A component of chronic CPPD arthropathy is not entirely excluded. Mild osseous remodeling at the bilateral distal radioulnar joint. Procedure Note Jay Adams MD - 09/29/2024 EXAM Bilat UPREXT XR HAND 3 OR MORE VIEWS - 09/29/2024 9:20 am HISTORY lumps in fingers COMPARISON No Comparison. TECHNIQUE Radiography of the Bilat UPREXT was performed. FINDINGS Bilateral hands: No acute fracture or dislocation. No erosion or focalsoft tissue swelling. Scattered mild to moderate bilateral degenerativechanges, most pronounced at the bilateral short CMCs. No convincing softtissue mass. Chronic ulnar styloid deformity. Right greater than lefttriangular fibrocartilage mineralization. A component of chronic CPPDarthropathy is not entirely excluded. Mild osseous remodeling at thebilateral distal radioulnar joint. IMPRESSION IMPRESSION 1. No acute bilateral hand osseous finding. No convincing evidence forinflammatory arthropathy. 2. No convincing soft tissue mass. For persistent or unexplainedsymptoms, cross-sectional imaging could be obtained, if clinicallyindicated. Mellisa Darcie Sharer PAuSnday RADIOLOGY ([facility]) F inal Result documented in this encounter Visit Diagnoses Diagnosis Dupuytren contracture of left hand- Primary Cyst of joint of hand, right documented in this encounter Care Teams Public Address System Operator Relationship Specialty Start Date End Date Pro, Kp Orozco MD [address] [place] [address] PCP - General Internal Medicine 03/05/17 documented as of this encounter
--- OUTSIDE RECORDS SUMMARY | 2024-10-14 09:58 | External Medical Summary | Summary of Care ---
Author Name Unknown Organization [facility] Address [address] [place] [address] Phone [phone] Care Team Providers Care Supervisor Home Energy Consultant Name Role Phone Pro, Kp Orozco MD Primary Care Provider [phone]- [phone] Reason for Visit * Reason Comments Follow Up Encounter Details Date Type Department Care Team (Late st Contact Info) Description 09/29/2024 8:30 AM EDT Office Visit Otolaryngology [facility] [address] [place] [address] Rosibel Collado PA-C [address] [place] [phone] Bilateral impacted cerumen*; S/P myringotomy with insertion of tube Allergies Active Allergy Reactions Criticality Noted Date [...] Fluocinolone Acetonide Scalp 0.01 % External Oil ([place]-Smoothe/ FS Scalp) Apply to bilateral ears once [...] Sign Reading Time Taken Comments Blood Pressure - - Pulse - - Temperature 36.6 °C (97.8 °F) 09/29/2024 8:24 AM ED T Respiratory Rate - - Oxygen Saturation - - Inhaled Oxygen Concentration - - Weight 80.7 kg (178 lb) 09/29/2024 8:24 AM EDT Height - - Body Mass Index 25.54 03/18/2024 8:35 AM EDT documented in this encounter Functional Status * Are you deaf or do you have serious difficulty hearing? Answer Date of Assessment Author No 03/10/2015 9:00 AM EDT Azeb Franco TECH * Are you blind or do you have serious difficulty seeing, even when wearing glasses? Answer Date of Assessment Author No 03/10/2015 9:00 AM EDT Azeb Franco TECH * Do you have serious difficulty walking or climbing stairs? (5 years old or older) Answer Date of Assessment Author No 03/10/2015 9:00 AM EDAzeb Bill TECH * Do you have difficulty dressing or bathing? (5 years old or older) Answer Date of Assessment Author No 03/10/2015 9:00 AM EDAzeb Bill TECH * Because of a physical, mental, [...] Entry Date Author No 03/10/2015 9:00 AM EDAzeb Bill TECH documented in this encounter Progress Notes * Rosibel Collado PA-C - 09/29/2024 8:35 AM EDT SUBJECTIVE: Jessica Mcnamara is a 74 year old female. Chief Complaint Patient presents with Follow Up HPI: Patient presents for return appointment for right tube check and cerumen removal. She denies concerns or changes. Denies otorrhea or changes in hearing. Patient Active Problem List Diagnosis MIGRAINE, UNSPECIFIED, WITHOUT MENTION OF INTRACTABLE MIGRAINE Uterine leiomyoma Meniere's disease Endometriosis Genital herpes Benign neoplasm of pituitary gland (HCC) Acute serous otitis media of right ear Current Outpatient Medications Medication Sig Dispense Refill DYAZIDE CAPS 37.5-25 MG OR one cap by mouth daily CALTRATE 600 + D TABS 600-125 MG-IU OR 0 VALTREX 500 MG PO TABS as needed VITAMIN D 1000 UNIT PO CAPS 2 tablets daily FISH OIL 1000 MG PO CAPS 1 daily KLOR-CON 10 10 MEQ PO TBCR 1 tablet daily LORAZEPAM 0.5 MG PO TABS once tablet twice a day as needed for tinnitus 60 Tab 5 zactrdr-hhinvmndoj-cwqplvbu (FIORINAL) 50-325-40 MG Capsule take 1 to 2 capsules by mouth every 4 hours NEEDED 0 dicyclomine (BENTYL) 10 MG Capsule Take 1 Capsule by mouth in the morning and 1 Capsule before bedtime. pantoprazole (PROTONIX) 40 MG TBEC Take 1 Tablet by mouth in the morning and 1 Tablet before bedtime. diphenhydrAMINE HCl 25 MG Oral Tablet Take 1 Tablet by mouth every 6 hours as needed for Itching. Escitalopram Oxalate 10 MG Oral Tablet (Lexapro) Take 1 Tablet by mouth in the morning. Takes in the evening . Fluocinolone Acetonide Scalp 0.01 % External Oil ([place]-Smoothe/FS Scalp) Apply to bilateral ears once daily as needed for itching 118.28 mL 0 No current facility-administered medications for this visit. Review of patient's allergies indicates: Allergen Reactions Flexeril [Cyclobenzaprine] Other (Please comment) "zombie like" Ketorolac Hives Other - Drugs Katrophen- no Sx noted previously Oxycodone Other (Please comment) Sever itchy and sleepless Percodan Phenergan [Promethazine Hcl] IV form, caused redness throughout entire arm. Hard, swelling and pain REVIEW OF SYSTEMS Negative for constitutional, heart, lung, liver, kidney, digestive, hematologic, neurologic, rheumatologic, or endocrine complaints except as per history of present illness and past medical history. OBJECTIVE: Temp 36.6 °C (97.8 °F) (Tympanic) | Wt 80.7 kg (178 lb) | LMP 04/05/2002 | BMI 25.54 kg/m² | BSA2 m² PHYSICAL EXAM: General: alert, healthy, and no distress Ears: External ears normal, impacted cerumen removed from both canals with forceps under microscopeguidance, right tube healthy and functional, left TM intact and healthy with no effusion, retraction or perforation In order to better examine the ears the patient was brought to the microscope room where her ears were examined under the operating microscope with the above physical findings. ASSESSMENT/PLAN: Encounter Diagnoses Name Primary? S/P myringotomy with insertion of tube Yes Plan:Findings and problems reviewed with patient. Cerumen removed. Right tube healthy. She will return in 3 months. Rosibel Collado PA-C 09/29/2024 8:47 AM documented in this encounter Nursing Notes * Lauren Moore LPN - 09/29/2024 8:23 AM EDT Pt presents today for routine cerumen removal. Pt denies having issues since her last visit. documented in this encounter Plan of Treatment Upcoming Encounters Date Type Department Care Team (Late st Contact Info) Description 01/19/2025 1:30 PM EDT Office Visit Otolaryngology [facility] [address] [place] [address] Rosibel Collado PA-C [address] [place] [address] 04/20/2025 2:30 PM EDT Office Visit Otolaryngology [facility] [address] [place] [address] Rosible Collado PA-C [address] [place] [address] 07/27/2025 2:30 PM EST Office Visit Otolaryngology [facility] [address] [place] [address] Rosible Collado PA-C [address] [place] [address] Scheduled Procedures Name Priority Associated Diagnoses Date/Ti [...] this encounter Medical Devices Implanted Type Area Rubber Trimmer Device Identifier Shelf Expiration Date Model / Serial / Lot Tube Ventilation Henson Beveled - [id number] Implanted:Qty: 1 on 03/14/2022 by Jose Luis Luu DO at [facility] Right: Ear [employer] 12/06/2031 [id number] / / [id number] Tube Modified T [id number] - [id number] Implanted:Qty: 1 on 05/08/2023 by Jose Luis Luu DO at OR [facility] Right: Ear [employer] 12/29/2030 [id number] / / [id number] documented as of this encounter Visit Diagnoses Diagnosis Bilateral impacted cerumen- Primary Impacted cerumen S/P myringotomy with insertion of tube Other postprocedural status documented in this encounter Care Teams Supervisor Home Energy Consultant Relationship Specialty Start Date End Date Pro, Kp Orozco MD [address] [place] [address] PCP - General Internal Medicine 03/05/17 documented as of this encounter
--- OUTSIDE RECORDS SUMMARY | 2024-10-14 09:58 | External Medical Summary | Summary of Care ---
Author Name Unknown Organization [facility] Address [address] [place] [address] Phone [phone] Care Team Providers Care Returned Goods Inspector Name Role Phone Pro, Kp Orozco MD Primary Care Provider +1- [phone] Reason for Visit * Reason Onset Date Comments Appointment 09/29/2024 colonoscopy Encounter Details Date Type Department Care Team (Late st Contact Info) Description 09/29/2024 Telephone Gastroenterology, [facility] [address] [place] [address] Taj Hong MD [address] [place] [phone] Appointment (colonoscopy) Allergies Active Allergy Reactions Criticality [...] Fluocinolone Acetonide Scalp 0.01 % External Oil ([place]-Smoothe/ FS Scalp) Apply to bilateral ears once [...] Assessment Author No 03/10/2015 9:00 AM EDT Finlan K imberly A, TECH * Do you have serious difficulty walking or climbing stairs? (5 years old or older) Answer Date of Assessment Author No 03/10/2015 9:00 AM EDT FinlanAzeb imberly A, TECH * Do you have [...] encounter Miscellaneous Notes * Telephone Encounter - Laurence Tapia OSA - 09/29/2024 3:50 PM EDT Please give her a call back she is returning a call * Telephone Encounter - Margoth Cardenas OSA - 09/29/2024 9:42 AM EDT Lmm for pt to return call to enoch Justin R Cardenas, CHARLES 09/29/2024 9:45 AM documented in this encounter Plan of Treatment Upcoming Encounters Date Type Department Care Team (Late st Contact Info) Description 10/25/2024 2:30 PM EDT Office Visit Orthopaedics [facility] [address] [place] [phone] Nancy Razo PA-C [address] [place] [phone] 01/19/2025 1:30 PM EDT Office Visit Otolaryngology [facility] [address] [place] [address] Rosibel Collado PA-C [address] [place] [address] 04/20/2025 2:30 PM EDT Office Visit Otolaryngology [facility] [address] [place] [address] Rosibel Collado PA-C [address] [place] [address] 07/27/2025 2:30 PM EST Office Visit Otolaryngology [facility] [address] [place] [address] Rosibel Collado PA-C [address] [place] [address] Scheduled Procedures Name Priority Associated Diagnoses Date/Ti [...] this encounter Medical Devices Implanted Type Area Wildlife Science Professor Device Identifier Shelf Expiration Date Model / Serial / Lot Tube Ventilation Pope Zaira - [id number] Implanted:Qty: 1 on 03/14/2022 by Jose Luis Luu DO at OR [facility] Right: Ear [employer] 12/06/2031 [id number] / / [id number] Tube Modified T [id number] - [id number] Implanted:Qty: 1 on 05/08/2023 by Jose Luis Luu DO at OR [facility] [address] Right: Ear [employer] 12/29/2030 [id number] / / [id number] documented as of this encounter Care Teams Returned Goods Inspector Relationship Specialty Start Date End Date Pro, Kp Orozco MD [address] [place] [address] PCP - General Internal Medicine 03/05/17 documented as of this encounter
--- OUTSIDE RECORDS SUMMARY | 2024-10-14 09:59 | External Medical Summary | Summary of Care ---
Author Name Unknown Organization [facility] Address [address] [place] [address] Phone [phone] Care Team Providers Care Hospitality Coordinator Name Role Phone Pro, pK Orozco MD Primary Care Provider +1- [phone] Encounter Details Date Type Department Care Team (Late st Contact Info) Description 09/28/[address] [facility] [address] [place] [address] Rosibel Collado PA-C [address] [facility], [place] [id number] Allergies Active Allergy Reactions Criticality Noted Date Comments Cyclobenzaprine Other (Please comment) 08/06/19 "zombie like" Ketorolac Hives 08/06/2017 Other - Drugs 04/11/2010 Katrophen- no Sx noted previously Oxycodone Other (Please comment) 09/09/2014 Sever itchy and sleepless Percodan 04/19/2002 Promethazine Hcl 09/14/2009 IV form, caused redness throughout entire arm. Hard, swelling and pain documented as of this encounter (statuses as of 09/28/2024) Medications DYAZIDE CAPS 37.5-25 MG OR one [...] Fluocinolone Acetonide Scalp 0.01 % External Oil ([place]-Smoothe/ FS Scalp) Apply to bilateral ears once daily as needed for itching 118.28 mL 4 Active documented as of this encounter (statuses as of 09/28/2024) Active Problems Problem Noted Date Diagnosed Date Acute serous otitis media of right ear 7 Benign neoplasm of pituitary gland 09/14/2009 Uterine leiomyoma 04/13/2002 Meniere's disease 04/13/2002 Endometriosis 04/13/2002 Genital herpes 04/13/2002 Overview (04/14/2017): ICD-10 update of inactive term MIGRAINE, UNSPECIFIED, WITHO UT MENTION OF INTRACTABLE MIGRAINE documented as of this encounter (statuses as of 09/28/2024) Immunizations Name Administration Dates Next Due COVID-19 [...] No 03/10/2015 9:00 AM EDT Azeb Franco A TECH * Are you blind or do you have serious difficulty seeing, even when wearing glasses? Answer Date of Assessment Author No 03/10/2015 9:00 AM EDT Azeb Franco A TECH * Do you have serious difficulty walking or climbing stairs? (5 years old or older) Answer Date of Assessment Author No 03/10/2015 9:00 AM EDT Azeb Franco A TECH * Do you have difficulty dressing or bathing? (5 years old or older) Answer Date of Assessment Author No 03/10/2015 9:00 AM EDT Azeb Franco A TECH * Because of a physical, mental, or emotional condition, do you have difficulty doing errands alone such as visiting a doctor’s office or shopping? (15 years old or older) Answer Date of Assessment Author No 03/10/2015 9:00 AM EDT Azeb Franco TECH documented as of this encounter Mental Status * Because of a physical, mental, or emotional condition, do you have serious difficulty concentrating, remembering, or making decisions? (5 years old or older) Answer Entry Date Author No 03/10/2015 9:00 AM EDT Azeb Franco TECH documented in this encounter Miscellaneous Notes * Telephone Encounter - Shahnaz Mccollum LPN - 09/28/2024 11:09 AM EDT Patient returned call and is scheduled for 09/29/24 at 830 documented in this encounter Plan of Treatment Upcoming Encounters Date Type Department Care Team (Late st Contact Info) Description 09/29/2024 8:30 AM EDT Office Visit Otolaryngology [facility] [address] [place] [address] Rosibel Collado PA-C [address] [place] [id number] 02/02/2025 2:30 PM EDT Office Visit Otolaryngology [facility] [address] [place] [address] Rosibel Collado PA-C [address] [place] [address] Scheduled Procedures Name Priority Associated Diagnoses Date/Ti [...] this encounter Medical Devices Implanted Type Area Dredge Engineer Device Identifier Shelf Expiration Date Model / Serial / Lot Tube Ventilation Henson Beveled - [id number] Implanted:Qty: 1 on 03/14/2022 by Jose Luis Luu DO at OR [facility] Right: Ear [employer] 12/06/2031 [id number] / / [id number] Tube Modified T [id number] - [id number] Implanted:Qty: 1 on 05/08/2023 by Jose Luis Luu DO at OR [facility] Right: Ear [employer] 12/29/2030 [id number] / / [id number] documented as of this encounter Care Teams Hospitality Coordinator Relationship Specialty Start Date End Date Pro, Kp Orozco MD [address] [facility], [place] [address] PCP - General Internal Medicine 03/05/17 documented as of this encounter
--- OUTSIDE RECORDS SUMMARY | 2024-10-14 09:59 | External Medical Summary | Summary of Care ---
Author Name Unknown Organization [facility] Address [address] [place] [address] Phone [phone] Care Team Providers Care Jewel Hole Gauger Name Role Phone Pro, Kp Orozco MD Primary Care Provider +1- [phone] Reason for Visit * Reason Onset Date Comments Referral 09/14/2024 Gastroenterology Encounter Details Date Type Department Care Team (Late st Contact Info) Description 09/14/2024 Telephone Access Center, [place] [address] [facility] *DO NOT REMOVE THIS DEPARTMENT* [place], [place] [phone] Services, Scheduling [address] [place] [address] Referral (Gastroenterology ) Allergies Active Allergy Reactions Criticality Noted Date Comments Cyclobenzaprine Other (Please comment) 08/06/19 18 "zombie like" Ketorolac Hives 08/06/2017 Other - Drugs 04/11/2010 Katrophen- no Sx noted previously Oxycodone Other (Please comment) 09/09/2014 Sever itchy and sleepless Percodan 04/19/2002 Promethazine Hcl 09/14/2009 IV form, caused redness throughout entire arm. Hard, swelling and pain documented as of this encounter (statuses as of 09/14/2024) Medications DYAZIDE CAPS 37.5-25 MG OR one [...] Fluocinolone Acetonide Scalp 0.01 % External Oil ([place]-Smoothe/ FS Scalp) Apply to bilateral ears once daily as needed for itching 118.28 mL 4 Active documented as of this encounter (statuses as of 09/14/2024) Active Problems Problem Noted Date Diagnosed Date Acute serous otitis media of right ear 7 Benign neoplasm of pituitary gland 09/14/2009 Uterine leiomyoma 04/13/2002 Meniere's disease 04/13/2002 Endometriosis 04/13/2002 Genital herpes 04/13/2002 Overview (04/14/2017): ICD-10 update of inactive term MIGRAINE, UNSPECIFIED, WITHO UT MENTION OF INTRACTABLE MIGRAINE documented as of this encounter (statuses as of 09/14/2024) Immunizations Name Administration Dates Next Due COVID-19 [...] encounter Miscellaneous Notes * Telephone Encounter - Lou Fermin [facility] - 09/14/2024 1:03 PM EST Patient calling in for gastroenterology appointment informed patient referral is needed. documented in this encounter Plan of Treatment Upcoming Encounters Date Type Department Care Team (Late st Contact Info) Description 02/02/2025 2:30 PM EDT Office Visit Otolaryngology [address] [place] [address] Rosibel Collado PA-C [address] [place] [address] Scheduled Procedures Name Priority Associated Diagnoses Date/Ti [...] this encounter Medical Devices Implanted Type Area Treasury Director Device Identifier Shelf Expiration Date Model / Serial / Lot Tube Ventilation [employer] - [id number] Implanted:Qty: 1 on 03/14/2022 by Jose Luis Luu DO at OR [facility] Right: Ear [employer] 12/06/2031 [id number] / / [id number] Tube Modified T [id number] - [id number] Implanted:Qty: 1 on 05/08/2023 by Jose Luis Luu DO at [facility] Right: Ear [employer] 12/29/2030 [id number] / / [id number] documented as of this encounter Care Teams Jewel Hole Gauger Relationship Specialty Start Date End Date Pro, Kp Orozco MD [address] [facility] [place] [address] PCP - General Internal Medicine 03/05/17 documented as of this encounter
--- NOTE | 2024-10-14 10:20 | Ultrasound Report ---
US gallbladder CLINICAL HISTORY: eval for cholecystitis patient has a right upper quadrant pain COMPARISON STUDY: Liver ultrasound dated 02/05/[address] of the abdomen and pelvis dated 03/27/2024 FINDINGS: There are no pancreatic lesion is depicted. Portions of the head and tail are obscured by b owel gas. The liver measures 15.7 cm in cephalocaudal dimension and has a heterogeneous, increased echogenicity most commonly associated with steatosis. There is a small focus of diminished echogenicity adjacent to the gallbladder fossa consistent with focal fatty sparing as seen in retrospect on prior studies. No focal liver lesions are depicted elsewhere. There is no ascites. There is hepatopedal flow in the portal vein. The IVC is patent. There are no gallstones identified. There is no gallbladder wall thickening or pericholecystic fluid. The common bile duct is normal measuring 4 mm. The right kidney is grossly negative with no hydronephrosis. IMPRESSION: Hepatic steatosis; otherwise negative. ACT 112: Negative or not required by law. Electronically signed by: Deysi Tate M.D. 10/14/2024 10:18 AM
--- NOTE | 2024-10-14 12:49 | Discharge Summary ---
Discharge Summary Date of Service October 14, 2024 Principal Dx & Hospital Course #1 = Principal Diagnosis (1) Chest pain: Plan 74-year-old female PMHx HLD, prediabetes, IBS, anxiety disorder, vitamin B12 and D deficiency, family history of factor V deficiency, and avascular necrosis of bilateral hips presenting to ED for chest pain starting at 1930 the night [employer]. CXR without acute findings; chest CTA without evidence of PE or pulmonary disease or aortic dissection; neck CTA with no evidence of stenosis or aneurysm and no evidence of dissection; EKG normal sinus ultrasound right upper quadrant to rule out gallbladder disease shows that hepatitis but no evidence of gallbladder disease. But trending of troponins was unrevealing with normal troponins. Echocardiogram is normal without regional wall motion abnormalities #Chest pain Patient has significant history of IBS and after speaking with her significant history of reflux. She is seeing [facility] gastroenterology at this point time. Takes daily Pepcid. We discussed this being the possibility of esophageal spasm. To this end we will give her nitroglycerin to use on a as needed basis with instructions and if it works she is to call Dr. Kim's office if it works and her symptoms return or does not work at all she is to report back to the emergency department. We will increase her Pepcid to 40 twice daily at this point time and have referred to Dr. Kim to see if he wishes to switch her to a PPI and have further evaluation by GI. #HLD- Rosuvastatin #Psych- Lexapro, lorazepam prn #IBS- Dicyclomine prn #Migraines- Fioricet prn #GERD- Famotidine, pantoprazole #Pain- Gabapentin, tramadol Notes For Next Care Provider Patient was given nitro for as needed use. She is a low risk cardiac risk but you could consider stress testing if you are to be complete to rule out everything. Perhaps switching from Pepcid to PPI though she was used to the Pepcid at this point time and wished to use the remainder of her prescription. States she does follow with [facility] GI perhaps 2 coordinator earlier referral would be helpful Admission HPI Per Admitting Provider 74-year-old female PMHx HLD, prediabetes, IBS, anxiety disorder, vitamin B12 and D deficiency, family history of factor V deficiency, and avascular necrosis of bilateral hips presenting to ED for chest pain starting at 1930 the night [employer]. Pain started at area of right shoulder then radiated across her entire chest from the right to left side, with associated radiation to bilateral shoulder blades, neck, and back with some tension into the ears. Pain lasted for approximately 3 hours in duration and did recur while in the ED. states that the pain actually recurs in random intervals, lasting for 2 to 3 minutes total and then resolving. Initially presenting as a sharp pain but has decreased in severity and is not having any current chest pain at the time of my visit. At the time of onset, she was sitting in her chair and relaxing after having a busy day running errands. States that she has had similar episodes of this happen 2 times before without clear etiology. Has worn a Holter monitor in the past but does not believe that there are any findings for such. 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 Patient states that she does have GERD at baseline and prior to the chest pain she had food, but that this did not feel like her typical GERD/acid reflux. States that she also gets migraines at times which presents mainly in the center of her head and the most recent was for total duration of 2 days approximately 2 days [employer]. She normally does not have neck stiffness or difficulties with her neck, but her chart does reveal that she has a history of cervical radiculopathy. She is not having any associated SOB, palpitations, N/B, or diaphoresis. Patient with significant family history of cardiac disease. Otherwise denying abdominal pain, diarrhea/constipation, numbness/tingling, LUTS, fever/chills, URI symptoms, or syncope. ED evaluation reveals no leukocytosis, stable H&H; CMP grossly WNL exception ratio 25.3 glucose 110, alk phos 109; troponin 4.7; lipase 81; CXR without acute findings; chest CTA without evidence of PE or pulmonary disease or aortic dissection; neck CTA with no evidence of stenosis or aneurysm and no evidence of dissection; EKG normal sinus at [address] Hobbs's attestation for adjustments/additions to treatment plan. Discharge Exam Awake and alert her symptoms are completely resolved she has no focal distress Discharge Plan Discharge Items Patient Disposition: Home - Self-Care Reason For Visit: CHEST PAIN Discharge Diagnosis: possible esophageal spasm Follow-up/Referrals: ProKp MD [Primary Care Provider] - 10/18/24 11:00 am (with Rossi Sandoval PA-C) Addtl Attending Provider Instructions: What are the symptoms of esophageal spasms? The two most common symptoms of esophageal spasms are difficulty swallowing and noncardiac chest pain. But not all cases cause symptoms. In some cases, esophageal spasms can cause chest pain that feels like youre having aheart attack Call your provider or seek immediate medical care if you experience worsening, unexplained chest pain for more than five minutes. Esophageal spasm symptoms may be mild or severe. They may start at specific times, like after eating. Sometimes, they come on suddenly, out of nowhere. Once spasms start, they may last for a few minutes or more than one hour. What do esophageal spasms feel like? If you have esophageal spasms you may havechest painthat feels like: * Squeezing, tightening, pressure or heaviness, especially behind your breastbone (sternum). * Heartburn (a burning sensation in your chest). * Pain on your right side, left side or middle that radiates to your neck, left arm or back. With dysphagia, you may have: * The sensation that something is stuck in your throat. * The feeling that food or liquid is trying to come back up your throat. What causes esophageal spasms? Medical experts dont know the exact cause. But some believe spasms happen because of faulty nerves that control how your esophagus muscles work. In some instances, the faulty nerves may relate to excess acid in your esophagus. Many people with esophageal spasms also have chronic acid reflux . With this condition, stomach acid flows back up to your esophagus. Its possible that the acid damages nerves in your esophagus. More research is needed to determine the specific cause and risk factors. What triggers esophageal spasms? Some people notice esophageal spasm symptoms tend to start: * After consuming food or (very hot or cold) drinks. * Before, during or after extreme stress or anxiety. * During exercise. But spasms can happen at any time. Diagnosis and Tests How are esophageal spasms diagnosed? Your healthcare provider will perform aphysical exam to evaluate your symptoms. If you have chest pain, your provider may order tests, such as an electrocardiogram to rule outheart disease Once theyve ruled out heart disease, theyll likely perform tests to rule out more common conditions that may be causing your symptoms. These include: * Upper endoscopy For this test, your provider will insert a narrow tube called an endoscope into your esophagus. The endoscope has a light and a tiny camera at one end so your provider can view the inside of your esophagus. This test helps your provider see if you have structural irregularities causing your chest pain or trouble swallowing. * Esophagram (barium swallow) This test requires you to swallow a solution containing barium. Your provider will viewX-raysthat show the barium moving down your esophagus. It can help a provider rule out other causes of your symptoms, like a stricture (narrowing). * Tests used to diagnose esophageal spasms specifically include: * Esophageal manometry This test measures pressure waves inside your esophagus when you swallow. Its the gold-standard (most used and reliable) test to diagnose esophageal spasms. An unusually large number of simultaneous contractions in your lower esophagus is a major indicator of spasms. * * Functional lumen imaging probe (FLIP): FLIP is a newer test that can provide information about movement within your esophagus. This includes your esophageal otero ability to respond to pressure changes. What can mimic esophageal spasms? Esophageal spasms can be tricky to diagnose since several conditions cause the telltale symptoms: chest pain and trouble swallowing. Once your provider determines your issue isnt heart-related, theyll rule out more common digestive system conditions with similar symptoms. These may include: * GERD (which often happens alongside esophageal spasms). * Esophageal strictures * Hiatal hernia Management and Treatment How are esophageal spasms treated? Esophageal spasm treatments focus on relaxing your esophageal muscles to relieve your symptoms. If esophageal spasms dont cause symptoms, you may not need treatment. Your healthcare provider may recommend any of the following to treat esophageal spasms: * Home remedies: Research shows that peppermint oil may help relax esophageal muscles. Drinking water with a few drops of peppermint oil may relieve minor symptoms. Identifying what triggers your symptoms could help you avoid future spasms. * Medication: Takingcalcium channel blockers(blood pressure medicine) before eating helps many people swallow more easily. Taking nitrates can help relieve chest pain.Tricyclic antidepressantscan target the faulty esophageal nerves, relieving pain. * Botulinum toxin (Botox) injections: Botox injections temporarily paralyze your esophagus muscles, stopping spasms. If other therapies havent helped, your provider may recommend this option. Treatment benefits last about six months. * Surgery: If your symptoms are severe and other treatments havent helped, your provider may recommend surgery called a myotomy. During a myotomy, a provider makes an incision along your lower esophagus muscle. This incision stops the muscle from working entirely, which stops abnormal contractions. With the esophageal muscle no longer in use, gravity moves food and liquid down your esophagus. * Many people with esophageal spasms and GERD experience symptom relief for both conditions by takingproton pump inhibitors(PPIs). These medicines reduce stomach acid production. Esophageal spasms related to opioid use often resolve after you stop taking them. Prevention Can I prevent esophageal spasms? Unfortunately, you cant prevent the condition from happening altogether. Still, identifying and avoiding potential triggers (like certain foods or drinks) may help prevent spasm episodes from starting or worsening. [place] / Prognosis Are esophageal spasms serious? Esophageal spasms sometimes cause chest pain or trouble swallowing. But providers dont consider the condition a serious threat to your health. Having trouble swallowing may make you worry about choking, but esophageal spasms arent life-threatening. Usually, they dont interfere with your ability to get adequate nutrition. Esophageal spasms dont increase your risk ofesophageal canceror other serious conditions that can affect your esophagus. What is the prognosis (out[place]) for people with esophageal spasms? The prognosis of esophageal spasms varies based on the severity of your symptoms. Many people experience few or minor symptoms from esophageal spasms. Treatments improve esophageal spasm symptoms considerably. Your healthcare provider will monitor you to ensure any medications you take are working. Theyll schedule follow-up appointments post-surgery to ensure youre healing as you should be. Living With When should I see my healthcare provider? Esophageal spasms can sometimes cause symptoms similar to a heart attack. A heart attack can be life-threatening if not treated right away. Call 911 or seek immediate medical care if you experience: * Heaviness or tightness in your chest that doesnt go away after five minutes. * Pain in other areas near your chest, such as your shoulder, arm or neck. * Trouble catching your breath (calleddyspnea). * Heart palpitations, such as fast or irregular heartbeat. * Dizziness or feeling faint or weak (like you might pass out). * Cold sweats. * Nausea or vomiting. Heartburn-like pain and trouble swallowing are often signs of a routine problem. Still, they may signal a more serious condition (such as cancer). Always check in with your provider if you experience similar symptoms for longer than two weeks. Addtl Taker Off Provider Instructions: nitroglycerin is a fast acting medication that can help is this is esophageal spasm, if you are painful take a dose and if improved/resolved contact your primary care the next available opportunity, if is does not help or helps and comes back, seek evaluation at an ER for the time being increase your pepcid to 40 mg twice a day, until further discussion with Dr KIM Pending Studies at Discharge: No Stand-Alone Forms: My [facility] [employer], Smoking Cessation Medications and DC Order Prescriptions: New nitroglycerin 0.4 mg tablet, sublingual 0.4 mg sublingual ONCE PRN (Reason: chest pain) Qty: 1 0RF Rx Instructions: if resolves pain contact your primary care, if not resolved or resolved and comes back go to er Continued triamterene-hydrochlorothiazid 37.5-25 mg capsule 1 cap PO QAM Qty: 30 6RF Rx Instructions: take 1 capsule by mouth once daily valacyclovir 1 gram tablet 1,000 mg PO QAM Qty: 30 5RF Rx Instructions: 1 tablet per day. tramadol 50 mg tablet 50 mg PO DAILY PRN (Reason: pain) Qty: 20 0RF potassium chloride 10 mEq tablet extended release 10 meq PO QAM Qty: 60 1RF [id number] [Fioricet] 50-300-40 mg capsule 1 cap PO Q8H PRN (Reason: pain) Qty: 20 0RF Rx Instructions: take 1 cap PO Q8H PRN allopurinol 100 mg tablet 200 mg PO DAILY Qty: 60 5RF escitalopram oxalate [Lexapro] 20 mg tablet 20 mg PO HS Qty: 90 3RF lorazepam 0.5 mg tablet 0.5 mg PO BID PRN (Reason: anxiety) Qty: 30 0RF rosuvastatin [Crestor] 10 mg tablet 10 mg PO DAILY Qty: 90 3RF gabapentin 100 mg capsule 300 mg PO BID Qty: 180 1RF cholecalciferol (vitamin D3) [Vitamin D3] 50 mcg (2,000 unit) Capsule 50 mcg PO QAM azelastine 137 mcg (0.1 %) aerosol,spray 2 spray intranasal BID PRN (Reason: Nasal Congestion) Rx Instructions: administer into each nostril dicyclomine 10 mg capsule 10 mg PO QID PRN (Reason: abdominal cramping) Rx Instructions: take 1 capsule by mouth four times a day if needed pantoprazole 40 mg tablet,delayed release (DR/EC) 40 mg PO DAILYBB Rx Instructions: 1 tablet 1/2 hour prior to breakfast PO daily; lorazepam 1 mg tablet 1 mg PO HS PRN (Reason: anxiety) Rx Instructions: 1 mg orally at bedtime PRN; Ongoing therapy Supervising physician Kp Kim MD ALICIA [id number] Changed famotidine 20 mg tablet 40 mg PO BID Qty: 120 5RF Discharge Orders: Discharge Order (Routine); Ordered 10/14/24 Ordered By: Vicente Castillo Admission Data Admit Date/Time: 10/14/24 04:33 Attending Provider: Vicente Castillo Admit Provider: Durga Hobbs Primary Care Provider: Kp Kim Other Providers: Durga Hobbs Hospital Stay Data Consultations 10/14/24 03:53 ED Decision to Admit Stat Diagnostic Imagining Performed 10/14/24 00:35 CTA chest w con [CT angio chest w con] Stat CTA neck with con [CT angio neck with con] Stat 10/14/24 07:43 US gallbladder Urgent Pending Results Patient Have Any Pending Studies at Discharge: No Discharge Instructions Given to Patient (Per Discharging Provider) What are the symptoms of esophageal spasms? The two most common symptoms of esophageal spasms are difficulty swallowing and noncardiac chest pain. But not all cases cause symptoms. In some cases, esophageal spasms can cause chest pain that feels like youre having aheart attack Call your provider or seek immediate medical care if you experience worsening, unexplained chest pain for more than five minutes. Esophageal spasm symptoms may be mild or severe. They may start at specific times, like after eating. Sometimes, they come on suddenly, out of nowhere. Once spasms start, they may last for a few minutes or more than one hour. What do esophageal spasms feel like? If you have esophageal spasms you may havechest painthat feels like: * Squeezing, tightening, pressure or heaviness, especially behind your breastbone (sternum). * Heartburn (a burning sensation in your chest). * Pain on your right side, left side or middle that radiates to your neck, left arm or back. With dysphagia, you may have: * The sensation that something is stuck in your throat. * The feeling that food or liquid is trying to come back up your throat. What causes esophageal spasms? Medical experts dont know the exact cause. But some believe spasms happen because of faulty nerves that control how your esophagus muscles work. In some instances, the faulty nerves may relate to excess acid in your esophagus. Many people with esophageal spasms also have chronic acid reflux . With this condition, stomach acid flows back up to your esophagus. Its possible that the acid damages nerves in your esophagus. More research is needed to determine the specific cause and risk factors. What triggers esophageal spasms? Some people notice esophageal spasm symptoms tend to start: * After consuming food or (very hot or cold) drinks. * Before, during or after extreme stress or anxiety. * During exercise. But spasms can happen at any time. Diagnosis and Tests How are esophageal spasms diagnosed? Your healthcare provider will perform aphysical exam to evaluate your symptoms. If you have chest pain, your provider may order tests, such as an electrocardiogram to rule outheart disease Once theyve ruled out heart disease, theyll likely perform tests to rule out more common conditions that may be causing your symptoms. These include: * Upper endoscopy For this test, your provider will insert a narrow tube called an endoscope into your esophagus. The endoscope has a light and a tiny camera at one end so your provider can view the inside of your esophagus. This test helps your provider see if you have structural irregularities causing your chest pain or trouble swallowing. * Esophagram (barium swallow) This test requires you to swallow a solution cont aining barium. Your provider will viewX-raysthat show the barium moving down your esophagus. It can help a provider rule out other causes of your symptoms, like a stricture (narrowing). * Tests used to diagnose esophageal spasms specifically include: * Esophageal manometry This test measures pressure waves inside your esophagus when you swallow. Its the gold-standard (most used and reliable) test to diagnose esophageal spasms. An unusually large number of simultaneous contractions in your lower esophagus is a major indicator of spasms. * * Functional lumen imaging probe (FLIP): FLIP is a newer test that can provide information about movement within your esophagus. This includes your esophag eal otero ability to respond to pressure changes. What can mimic esophageal spasms? Esophageal spasms can be tricky to diagnose since several conditions cause the telltale symptoms: chest pain and trouble swallowing. Once your provider determines your issue isnt heart-related, theyll rule out more common digestive system conditions with similar symptoms. These may incl ude: * GERD (which often happens alongside esophageal spasms). * Esophageal strictures * Hiatal hernia Management and Treatment How are esophageal spasms treated? Esophageal spasm treatments focus on relaxing your esophageal muscles to relieve your symptoms. If esophageal spasms dont cause symptoms, you may not need treatment. Your healthcare provider may recommend any of the following to treat esophageal spasms: * Home remedies: Research shows that peppermint oil may help relax esophageal muscles. Drinking water with a few drops of peppermint oil may relieve minor symptoms. Identifying what triggers your symptoms could help you avoid future spasms. * Medication: Takingcalcium channel blockers(blood pressure medicine) before eating helps many people swallow more easily. Taking nitrates can help relieve chest pain.Tricyclic antidepressantscan target the faulty esophageal nerves, relieving pain. * Botulinum toxin (Botox) injections: Botox injections temporarily paralyze your esophagus muscles, stopping spasms. If other therapies havent helped, your provider may recommend this option. Treatment benefits last about six months. * Surgery: If your symptoms are severe and other treatments havent helped, your provider may recommend surgery called a myotomy. During a myotomy, a provider makes an incision along your lower esophagus muscle. This incision stops the muscle from working entirely, which stops abnormal contractions. With the esophageal muscle no longer in use, gravity moves food and liquid down your esophagus. * Many people with esophageal spasms and GERD experience symptom relief for both conditions by takingproton pump inhibitors(PPIs). These medicines reduce stomach acid production. Esophageal spasms related to opioid use often resolve after you stop taking them. Prevention Can I prevent esophageal spasms? Unfortunately, you cant prevent the condition from happening altogether. Still, identifying and avoiding potential triggers (like certain foods or drinks) may help prevent spasm episodes from starting or worsening. [place] / Prognosis Are esophageal spasms serious? Esophageal spasms sometimes cause chest pain or trouble swallowing. But providers dont consider the condition a serious threat to your health. Having trouble swallowing may make you worry about choking, but esophageal spasms arent life-threatening. Usually, they dont interfere with your ability to get adequate nutrition. Esophageal spasms dont increase your risk ofesophageal canceror other serious conditions that can affect your esophagus. What is the prognosis (out[place]) for people with esophageal spasms? The prognosis of esophageal spasms varies based on the severity of your symptoms. Many people experience few or minor symptoms from esophageal spasms. Treatments improve esophageal spasm symptoms considerably. Your healthcare provider will monitor you to ensure any medications you take are working. Theyll schedule follow-up appointments post-surgery to ensure youre healing as you should be. Living With When should I see my healthcare provider? Esophageal spasms can sometimes cause symptoms similar to a heart attack. A heart attack can be life-threatening if not treated right away. Call 911 or seek immediate medical care if you experience: * Heaviness or tightness in your chest that doesnt go away after five minutes. * Pain in other areas near your chest, such as your shoulder, arm or neck. * Trouble catching your breath (calleddyspnea). * Heart palpitations, such as fast or irregular heartbeat. * Dizziness or feeling faint or weak (like you might pass out). * Cold sweats. * Nausea or vomiting. Heartburn-like pain and trouble swallowing are often signs of a routine problem. Still, they may signal a more serious condition (such as cancer). Always check in with your provider if you experience similar symptoms for longer than two weeks. Total Time Total Time Spent Total Time Spent (In Minutes): It required greater than 30 minutes to prepare this patient for discharge. Coding Level of Care Code 85480 INP/OBS DISCH >30 MIN Diagnoses Chest pain R07.9
[2024-10-14 13:21] VITALS: BP 97/61; PULSE 70; RESP 16; O2SAT 95
[2024-10-14] MEDS ORDERED: ESCITALOPRAM OXALATE 20 MG TAB PO SCH (21:00)
--- NOTE | 2024-10-15 16:27 | Electrocardiogram Report ---
Test Reason : Blood Pressure : */* mmHG Vent. Rate : 71 BPM Atrial Rate : 71 BPM P-R Int : 146 ms QRS Dur : 82 ms QT Int : 422 ms P-R-T Axes : * 41 52 degrees QTcB Int : 458 ms Normal sinus rhythm Normal ECG When compared with ECG of 13-Oct-2024 22:28, No significant change was found Confirmed by Ryan Berg ([id number]) on 10/15/2024 4:27:33 PM Referred By: REFERRED SELF Confirmed By: Ryan Berg
== END 2024-10-14 13:18 | disposition home or self-care (01) ==
LOC: ED 22:18 → EDINP 22:18 → SUATTDRO 10-14 04:33 → EDINP 10-14 05:28